=== PATIENT | male | born 1980 | race Caucasian/White ===

== ENCOUNTER → 2018-05-03 | Outpatient (CLI) | payer BC ==
--- NOTE | 2018-05-03 09:22 | Diagnostic Imaging Report ---
PROCEDURE: US Venous Lower Ext Driss. TECHNIQUE: Multiple real-time grayscale images were obtained over the lower extremities in various projections, bilaterally. Additional duplex Doppler and color Doppler images were also obtained. INDICATION: Lower limb ischemia. There is no evidence of a right or left lower extremity DVT. Both lower extremity deep venous systems demonstrate normal compressibility with normal response to augmentation and Valsalva. No fluid collection or mass is seen. IMPRESSION: No evidence of right or left lower extremity DVT. Dictated by: Dictated on workstation # [id number] ADDENDUM: UPDATED ORDERING PROVIDER YADIEL VALENCIA APRN
== END ==
LOC: RAD 07:52
PROVIDERS: ATTEND Nurse Practitioner Family
DX: M62.269 Nontraumatic ischemic infarction of muscle, unspecified lower leg (principal)
CPT/HCPCS: 93970

== ENCOUNTER 2020-03-01 14:57 | Observation (INO) | payer BC ==
[~2020-03-01] VITALS: Ht 190.5 cm; Wt 130.0 kg
[2020-03-01] MEDS ORDERED: LISI10TA2 PO (15:27)
[2020-03-01 15:35] LABS: BASOPHILS % (AUTO) 0 % (0-10); EOSINOPHILS # (AUTO) 0.2 10^3/uL (0.0-0.3); EOSINOPHILS % (AUTO) 3 % (0-10); HEMATOCRIT 41 % (40-54); HEMOGLOBIN 13.5 G/DL (13.3-17.7); LYMPHOCYTES # (AUTO) 1.2 X 10^3 (1.0-4.0); LYMPHOCYTES % (AUTO) 14 % (12-44); MEAN CORPUSCULAR HEMOGLOBIN 24 PG (25-34); MEAN CORPUSCULAR HGB CONC 33 G/DL (32-36); MEAN CORPUSCULAR VOLUME 73 FL (80-99); MEAN PLATELET VOLUME 9.6 FL (7.4-10.4); MONOCYTES # (AUTO) 0.6 X 10^3 (0.0-1.0); MONOCYTES % (AUTO) 7 % (0-12); NEUTROPHILS # (AUTO) 6.7 X 10^3 (1.8-7.8); NEUTROPHILS % (AUTO) 77 % (42-75); PLATELET COUNT 240 10^3/uL (130-400); RED CELL DISTRIBUTION WIDTH 15.4 % (10.0-14.5); WHITE BLOOD COUNT 8.7 10^3/uL (4.3-11.0)
[2020-03-01 15:42] LABS: ALBUMIN 4.3 GM/DL (3.2-4.5); POTASSIUM 3.5 MMOL/L (3.6-5.0)
[2020-03-01 15:43] LABS: CALCIUM 9.7 MG/DL (8.5-10.1)
[2020-03-01 15:44] LABS: TOTAL PROTEIN 7.8 GM/DL (6.4-8.2)
[2020-03-01] MEDS ORDERED: LABETALOL HCL 20 MG/4 ML VIAL IV ONE (15:45)
[2020-03-01 15:46] LABS: BILIRUBIN,TOTAL 0.4 MG/DL (0.1-1.0)
[2020-03-01 15:48] LABS: CREATININE SERUM 1.47 MG/DL (0.60-1.30)
[2020-03-01 16:10] LABS: TSH (THYROID ANALYZER) 1.67 UIU/ML (0.35-4.94)
[2020-03-01 16:30] LABS: BILIRUBIN,URINE NEGATIVE (NEGATIVE); CLARITY,URINE CLEAR; COLOR,URINE YELLOW; GLUCOSE, URINE (UA) NEGATIVE (NEGATIVE); KETONES,URINE NEGATIVE (NEGATIVE); LEUKOCYTE ESTERASE ,URINE NEGATIVE (NEGATIVE); NITRITE,URINE NEGATIVE (NEGATIVE); PROTEIN,URINE NEGATIVE (NEGATIVE)
[2020-03-01] MEDS ORDERED: hydrALAZINE (APRESOLINE) 25 MG TAB PO ONE (16:30)
[2020-03-01 16:37] LABS: BACTERIA,URINE NEGATIVE /HPF; WBC,URINE RARE /HPF
--- NOTE | 2020-03-01 16:38 | ED Cardiac General ---
History of Present Illness General Chief Complaint: Cardiac/General Problems Stated Complaint: HIGH BP Nursing Triage Note: PT CO OF HYPERTENSION, STATES STARTED TAKING LISINOPRIL LAST WEEK, WAS SEEN TODAY AT [facility] AND SENT TO ED. Source: patient Exam Limitations: no limitations History of Present Illness Date Seen by Provider: Mar 01, 2020 Time Seen by Provider: 15:20 Initial Comments This 39-year-old gentleman presents to the emergency room as referred by the [facility] clinic for hypertension. He reports a remote history of hypertension a few years ago for which she was briefly treated. He states he "did not stick with it" and was not treated until he was seen again recently. He presented to the clinic about a week ago for some swelling in his foot. Hypertension was noted at that time. He was started on lisinopril/HCTZ 10/12.5 as well as amlodipine 5 mg. He took 2 of the lisinopril/HCTZ and at one of the amlodipine this morning. He then presented to [facility] and was found to have systolic blood pressures in the 170-180 range. Upon presentation here his systolic blood pressures 218. He denies chest pain, headache, vision changes, or other acute symptoms. He believes hypertension runs in his family. He denies any use of illicit substances or alcohol. He does use some stimulants in the form of coffee. He did take a B complex drink flavorings earlier today. He is uncertain if there is caffeine or any other stimulant in it. Allergies and Home Medications Allergies Coded Allergies: No Known Drug Allergies (Unverified , 03/01/20) Home Medications Lisinopril 10 Mg Tablet, Unknown Dose PO DAILY, (Reported) Patient Home Medication List Home Medication List Reviewed: Yes Review of Systems Review of Systems Constitutional: no symptoms reported EENTM: No Symptoms Reported Cardiovascular: See HPI Gastrointestinal: No Symptoms Reported Genitourinary: No Symptoms Reported Musculoskeletal: no symptoms reported Skin: no symptoms reported Psychiatric/Neurological: No Symptoms Reported Endocrine: No Symptoms Reported Hematologic/Lymphatic: No Symptoms Reported Past Jsvqxac-Rkylqp-Iwqein Hx Past Med/Social Hx: Reviewed Nursing Past Med/Soc Hx Patient Social History Alcohol Use: Denies Use Recreational Drug Use: No Smoking Status: Never a Smoker Recent Foreign Travel: No Contact w/Someone Who Travel: No Recent Infectious Disease Expo: No Recent Hopitalizations: No Physical Abuse: No Sexual Abuse: No Past Medical History Surgeries: Yes (L ARM SURG) Respiratory: No Cardiac: Yes Hypertension Neurological: No Genitourinary: No Gastrointestinal: No Musculoskeletal: No Endocrine: No HEENT: No Cancer: No Psychosocial: No Physical Exam Vital Signs Vital Signs - First Documented 03/01/20 15:00 Temp 36.3 Pulse 92 Resp 18 B/P (MAP) 218/135 (162) Pulse Ox 99 Capillary Refill : Less Than 3 Seconds Height, Weight, BMI Height: '" Weight: lbs. oz. 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 Norm as Tested Skin: Normal Color, Warm/Dry Progress/Results/Core Measures Results/Orders Lab Results Laboratory Tests Test 03/01/20 15:10 03/01/20 16:23 Range/Units White Blood Count 8.7 4.3-11.0 10^3/uL Red Blood Count 5.58 4.35-5.85 10^6/uL Hemoglobin 13.5 13.3-17.7 G/DL Hematocrit 41 40-54 % Mean Corpuscular Volume 73 L 80-99 FL Mean Corpuscular Hemoglobin 24 L 25-34 PG Mean Corpuscular Hemoglobin Concent 33 32-36 G/DL Red Cell Distribution Width 15.4 H 10.0-14.5 % Platelet Count 240 130-400 10^3/uL Mean Platelet Volume 9.6 7.4-10.4 FL Neutrophils (%) (Auto) 77 H 42-75 % Lymphocytes (%) (Auto) 14 12-44 % Monocytes (%) (Auto) 7 0-12 % Eosinophils (%) (Auto) 3 0-10 % Basophils (%) (Auto) 0 0-10 % Neutrophils # (Auto) 6.7 1.8-7.8 X 10^3 Lymphocytes # (Auto) 1.2 1.0-4.0 X 10^3 Monocytes # (Auto) 0.6 0.0-1.0 X 10^3 Eosinophils # (Auto) 0.2 0.0-0.3 10^3/uL Basophils # (Auto) 0.0 0.0-0.1 10^3/uL Sodium Level 143 135-145 MMOL/L Potassium Level 3.5 L 3.6-5.0 MMOL/L Chloride Level 105 98-107 MMOL/L Carbon Dioxide Level 26 21-32 MMOL/L Anion Gap 12 5-14 MMOL/L Blood Urea Nitrogen 23 H 7-18 MG/DL Creatinine 1.47 H 0.60-1.30 MG/DL Estimat Glomerular Filtration Rate 53 BUN/Creatinine Ratio 16 Glucose Level 97 70-105 MG/DL Calcium Level 9.7 8.5-10.1 MG/DL Corrected Calcium 9.5 8.5-10.1 MG/DL Total Bilirubin 0.4 0.1-1.0 MG/DL Aspartate Amino Transf (AST/SGOT) 23 5-34 U/L Alanine Aminotransferase (ALT/SGPT) 31 0-55 U/L Alkaline Phosphatase 56 40-136 U/L B-Type Natriuretic Peptide 157.7 H <100.0 PG/ML Total Protein 7.8 6.4-8.2 GM/DL Albumin 4.3 3.2-4.5 GM/DL TSH [place] Testing 1.67 0.35-4.94 UIU/ML Urine Color YELLOW Urine Clarity CLEAR Urine pH 6.0 5-9 Urine Specific [place] 1.020 1.016-1.022 Urine Protein NEGATIVE NEGATIVE Urine Glucose (UA) NEGATIVE NEGATIVE Urine Ketones NEGATIVE NEGATIVE Urine Nitrite NEGATIVE NEGATIVE Urine Bilirubin NEGATIVE NEGATIVE Urine Urobilinogen 0.2 < = 1.0 MG/DL Urine Leukocyte Esterase NEGATIVE NEGATIVE Urine RBC (Auto) NEGATIVE NEGATIVE Urine RBC NONE /HPF Urine WBC RARE /HPF Urine Crystals NONE /LPF Urine Bacteria NEGATIVE /HPF Urine Casts PRESENT /LPF Urine Coarse Granular Casts RARE H /LPF Urine Mucus NEGATIVE /LPF Urine Culture Indicated NO Urine Opiates Screen NEGATIVE NEGATIVE Urine Oxycodone Screen NEGATIVE NEGATIVE Urine Methadone Screen NEGATIVE NEGATIVE Urine Propoxyphene Screen NEGATIVE NEGATIVE Urine Barbiturates Screen NEGATIVE NEGATIVE Ur Tricyclic Antidepressants Screen NEGATIVE NEGATIVE Urine Phencyclidine Screen NEGATIVE NEGATIVE Urine Amphetamines Screen NEGATIVE NEGATIVE Urine Methamphetamines Screen NEGATIVE NEGATIVE Urine Benzodiazepines Screen NEGATIVE NEGATIVE Urine Cocaine Screen NEGATIVE NEGATIVE Urine Cannabinoids Screen NEGATIVE NEGATIVE My Orders Orders - [facility],SILVER T MD BNP (03/01/20 15:28) Cbc With Automated Diff (03/01/20:28) Comprehensive Metabolic Panel (03/01/20:) Drug Screen Stat (Urine) (03/01/20 15:28) Thyroid Analyzer (03/01/20 15:28) Ua Culture If Indicated (03/01/20 15:28) Ed Iv/Invasive Line Start (03/01/20 15:28) Ekg Tracing (03/01/20 15:28) Monitor-Rhythm Ecg Trace Only (03/01/20 15:28) Labetalol Injection (Normodyne Injection (03/01/20 15:45) Hydralazine Tablet (Apresoline Tablet) (03/01/20 16:30) Medications Given in ED Current Medications Medications Dose Ordered Sig/Gia Route Start Time Stop Time Status Last Admin Dose Admin Hydralazine HCl 50 mg ONCE ONCE PO 03/01/20 16:30 03/01/20 16:31 DC 03/01/20 16:44 50 MG Labetalol HCl 20 mg ONCE ONCE IV 03/01/20 15:45 03/01/20 15:46 DC 03/01/20 15:49 20 MG Vital Signs/I&O 03/01/20 15:00 Temp 36.3 Pulse 92 Resp 18 B/P (MAP) 218/135 (162) Pulse Ox 99 Blood Pressure Mean: 162 Progress Progress Note : Progress Note Patient received labetalol 20 mg IV which resulted in brief improvement of his blood pressure. However, blood pressure began to escalate again. Case was discussed with Dr. Morales. He and I both believe the severity of hypertension warrants admission and observation. Patient is being given hydralazine 50 mg now and every 6 hours. Case was also discussed with Dr. Butler who agrees with admission and accepts his case. Initial ECG Impression Date: Mar 01, 2020 Initial ECG Impression Time: 15:10 Initial ECG Rate: 91 Initial ECG Rhythm: Normal Sinus Initial ECG Intervals Right bundle branch block Comment Sinus rhythm with no ST elevation or depression. Right bundle branch block. No axis deviation. Departure Communication (Admissions) Time/Spoke to Admitting Phy: 16:30 Dr. Butler Time/Spoke to Consulting Phy: 16:25 Dr. Morales Impression Primary Impression: Severe hypertension Disposition: ADMITTED INPATIENT Condition: Stable Admissions Decision to Admit Reason: Admit from ER (General) Decision to Admit/Date: Mar 01, 2020 Time/Decision to Admit Time: 16:20 Departure-Patient Inst. Referrals: [facility] (PCP/Family) Primary Care Physician SILVER THAPA MD Mar 01, 2020 16:38
[2020-03-01 16:44] LABS: AMPHETAMINE SCREEN, URINE NEGATIVE (NEGATIVE); BARBITURATE SCREEN URINE NEGATIVE (NEGATIVE); BENZODIAZEPINES SCREEN URINE NEGATIVE (NEGATIVE); CANNABINOID SCREEN, URINE NEGATIVE (NEGATIVE); COCAINE SCREEN URINE NEGATIVE (NEGATIVE); METHADONE STAT NEGATIVE (NEGATIVE); METHAMPHETAMINE SCREEN URINE S NEGATIVE (NEGATIVE); OPIATE SCREEN URINE NEGATIVE (NEGATIVE); OXYCODONE STAT NEGATIVE (NEGATIVE); PROPOXYPHENE STAT NEGATIVE (NEGATIVE); TRICYCLIC ANTIDEPRESSANTS SCRE NEGATIVE (NEGATIVE)
[2020-03-01 17:24] VITALS: BP 235/135
--- OUTSIDE RECORDS SUMMARY | 2020-03-01 17:26 | XMS REPORT | Continuity of Care Document ---
Author Author [employer] Organization [employer] Address Unknown Phone Unavailable Allergies Active Description Code Type Severity Reaction Onset Reported/Identified Relationship to Patient Clinical Status Yes No Known Drug Allergies [id number] Drug Allergy Unknown N/A 03/01/2020 Medications There is no data. Problems Date Dx Coded Attending Type Code Diagnosis Diagnosed By 05/07/2018 BORN, YADIEL M POSTAL SUPERVISOR Ot M62.269 NONTRAUMATIC ISCHEMIC INFARCTION OF [facility] [place] 05/08/2018 BORN, YADIEL M POSTAL SUPERVISOR Ot M62.269 NONTRAUMATIC ISCHEMIC INFARCTION OF [facility] [place] 05/08/2018 BORN, YADIEL M POSTAL SUPERVISOR Ot M62.269 NONTRAUMATIC ISCHEMIC INFARCTION OF [facility] [place] 05/17/2018 BORN, YADIEL Pepper POSTAL SUPERVISOR Ot M62.261 NONTRAUMATIC ISCHEMIC INFARCTION OF [facility] [place] 05/17/2018 BORN, YADIEL Pabon POSTAL SUPERVISOR Ot M62.262 NONTRAUMATIC ISCHEMIC INFARCTION OF [facility] [place] Procedures There is no data. Results Test Result Range Complete blood count (CBC) with automate d white blood cell (WBC) differential - 03/01/20 15:10 Blood leukocytes automated count (number/volume) 8.7 10*3/uL 4.3-11.0 Blood erythrocytes automated count (number/volume) 5.58 10*6/uL 4.35-5.85 Venous blood hemoglobin measurement (mass/volume) 13.5 g/dL 13.3-17.7 Blood hematocrit (volume fraction) 41 % 40-54 Automated erythrocyte mean corpuscular volume 73 [ foz_us] 80-99 Automated erythrocyte mean corpuscular h emoglobin (mass per erythrocyte) 24 pg 25-34 Automated erythrocyte mean corpuscular h emoglobin concentration measurement (mass/volume) 33 g/dL 32-36 Automated erythrocyte distribution width ratio 15. 4 % 10.0- 14.5 Automated blood platelet count (count/volume) 240 10*3/uL 130-400 Automated blood platelet mean volume measurement 9.6 [foz_us] 7.4-10.4 Automated blood neutrophils/100 leukocytes 77 % 42-75 Automated blood lymphocytes/100 leukocytes 14 % 12-44 Blood monocytes/100 leukocytes 7 % 0-12 Automated blood eosinophils/100 leukocytes 3 % 0-10 Automated blood basophils/100 leukocytes 0 % 0-10 Blood neutrophils automated count (number/volume) 6.7 10*3 1.8-7.8 Blood lymphocytes automated count (number/volume) 1.2 10*3 1.0-4.0 Blood monocytes automated count (number/volume) 0. 6 10*3 0.0-1.0 Automated eosinophil count 0.2 10*3/uL 0 .0-0.3 Automated blood basophil count (count/volume) 0.0 10*3/uL 0.0-0.1 Comprehensive metabolic panel - 03/01/20 15:10 Serum or plasma sodium measurement (moles/volume) 143 mmol/L 135-145 Serum or plasma potassium measurement (moles/volume) 3.5 mmol/L 3.6-5.0 Serum or plasma chloride measurement (moles/volume) 105 mmol/L 98-107 Carbon dioxide 26 mmol/L 21-32 Serum or plasma anion gap determination (moles/volume) 12 mmol/L 5-14 Serum or plasma urea nitrogen measurement (mass/volume ) 23 mg/dL 7-18 Serum or plasma creatinine measurement (mass/volume) 1.47 mg/dL 0.60-1.30 Serum or plasma urea nitrogen/creatinine mass ratio 16 NRG Serum or plasma creatinine measurement w ith calculation of estimated glomerular filtration rate 53 NRG Serum or plasma glucose measurement (mass/volume) 97 mg/dL 70-105 Serum or plasma calcium measurement (mass/volume) 9.7 mg/dL 8.5-10.1 Serum or plasma total bilirubin measurement (mass/volu me) 0.4 mg/dL 0.1-1.0 Serum or plasma alkaline phosphatase francis surement (enzymatic activity/volume) 56 U/L 40-136 Serum or plasma aspartate aminotransfera se measurement (enzymatic activity/volume) 23 U/L 5-34 Serum or plasma alanine aminotransferase measurement (enzymatic activity/volume) 31 U/L 0-55 Serum or plasma protein measurement (mass/volume) 7.8 g/dL 6.4-8.2 Serum or plasma albumin measurement (mass/volume) 4.3 g/dL 3.2-4.5 CALCIUM CORRECTED 9.5 mg/dL 8.5-10.1 Serum or plasma thyrotropin measurement by detection limit <=0.05 miu/l (units/volume) - 03/01/20 15:10 Serum or plasma thyrotropin measurement by detection limit <=0.05 miu/l (units/volume) 1.67 u[iU]/mL 0.35-4.94 Serum or plasma lithium measurement (mol es/volume) - 03/01/20 15:10 BNP PT 157.7 pg/mL <100.0 Complete urinalysis with reflex to cultu re - 03/01/20 16:23 Urine color determination YELLOW NRG Urine clarity determination CLEAR NR G Urine pH measurement by test strip 6.0 5-9 Specific gravity of urine by test strip 1.020 1.016-1.022 Urine protein assay by test strip, semi-quantitative NEGATIVE NEGATIVE Urine glucose detection by automated test strip NE GATIVE NEGATIVE Erythrocytes detection in urine sediment by light micr oscopy NEGATIVE NEGATIVE Urine ketones detection by automated test strip NE GATIVE NEGATIVE Urine nitrite detection by test strip NEGATIVE NEGATIVE Urine total bilirubin detection by test strip NEGA TIVE NEGATIVE Urine urobilinogen measurement by automated test strip (mass/volume) 0.2 mg/dL < = 1.0 Urine leukocyte esterase detection by dipstick NEG ATIVE NEGATIVE Automated urine sediment erythrocyte cou nt by microscopy (number/high power field) NONE NRG Automated urine sediment leukocyte count by microscopy (number/high power field) RARE NRG Bacteria detection in urine sediment by light microsco py NEGATIVE NRG Crystals detection in urine sediment by light microsco py NONE NRG Casts detection in urine sediment by light microscopy PRESENT NRG Mucus detection in urine sediment by light microscopy NEGATIVE NRG Complete urinalysis with reflex to culture NO NRG Coarse granular casts detection in urine sediment by l ight microscopy RARE NRG Urine drug screening test - 03/01/20 16: 23 Urine phencyclidine detection by screening method NEGATIVE NEGATIVE Urine benzodiazepines detection by screening method NEGATIVE NEGATIVE Urine cocaine detection NEGATIVE NEGATI VE Urine amphetamines detection by screening method N EGATIVE NEGATIVE Urine methamphetamine detection by screening method NEGATIVE NEGATIVE Urine cannabinoids detection by screening method N EGATIVE NEGATIVE Urine opiates detection by screening method NEGATI VE NEGATIVE Urine barbiturates detection NEGATIVE N EGATIVE Screening urine tricyclic antidepressants detection NEGATIVE NEGATIVE Urine methadone detection by screening method NEGA TIVE NEGATIVE Urine oxycodone detection NEGATIVE NEGA TIVE Urine propoxyphene detection NEGATIVE N EGATIVE Encounters ACCT No. Visit Date/Time Discharge Status Pt. Type Provider Facility Loc./Unit Complaint [id number] 02/25/2020 11:00:00 02/25/2020 23:59: 59 CLS Outpatient RAFAELA ISIDRO [facility] [id number] 05/03/2018 07:52:00 018 23:59:59 CLS Outpatient ANNIE YADIELImra Pabon APRN [facility] RAD LOWER LIMB ISCHEMIA [id number] 03/01/2020 16:35:[address] Inpatient ANDI PHILIPPE, JACKIE Cha [facility] 4TH SEVERE HYPERTENSION
[2020-03-01] MEDS ORDERED: CATHETER FLUSH 10 ML SYR IV PRN (17:30)
[2020-03-01] MEDS: lisINopril 10 MG (PRINIVIL) TABLET PO SCH (17:37)
[2020-03-01] MEDS: amLODIPine 5 MG (NORVASC) TAB PO SCH (17:37)
[2020-03-01] MEDS: HYDROCHLOROTHIAZIDE 12.5 MG (HCTZ) CAP PO SCH (17:37)
[2020-03-01 18:10] VITALS: BP 214/114
[2020-03-01] MEDS: ENOXAPARIN 40 MG/0.4 ML (LOVENOX) SYR SQ SCH (18:47)
--- NOTE | 2020-03-01 18:52 | NUR ---
DR FELIPE NOTIFIED OF ELEVATED BP REQUESTED 186/102. 25 MG IV HYDRALAZINE X 1 ORDERED.
--- OUTSIDE RECORDS SUMMARY | 2020-03-01 18:59 | XMS REPORT | Continuity of Care Document ---
Author Author [employer] Address Unknown Phone Unavailable Allergies Active Description Code Type Severity Reaction Onset Reported/Identified Relationship to Patient Clinical Status Yes No Known Drug Allergies [id number] Drug Allergy Unknown N/A 03/01/2020 Medications There is no data. Problems Date Dx Coded Attending Type Code Diagnosis Diagnosed By 05/07/2018 BORN, YADIEL M CHIP APPLYING MACHINE TENDER Ot M62.269 NONTRAUMATIC ISCHEMIC INFARCTION OF [facility] [place] 05/08/2018 BORN, YADIEL M CHIP APPLYING MACHINE TENDER Ot M62.269 NONTRAUMATIC ISCHEMIC INFARCTION OF [facility] [place] 05/08/2018 BORN, YADIEL M CHIP APPLYING MACHINE TENDER Ot M62.269 NONTRAUMATIC ISCHEMIC INFARCTION OF [facility] [place] 05/17/2018 BORN, YADIEL Pepper CHIP APPLYING MACHINE TENDER Ot M62.261 NONTRAUMATIC ISCHEMIC INFARCTION OF [facility] [place] 05/17/2018 BORN, YADIEL Pabon CHIP APPLYING MACHINE TENDER Ot M62.262 NONTRAUMATIC ISCHEMIC INFARCTION OF [facility] [place] Procedures There is no data. Results Test [...] Status Pt. Type Provider Facility Loc./Unit Complaint [id number] 03/01/2020 14:00:00 ACT Outpatient JOSE DAVID CHRISTIE [facility] [id number] 05/03/2018 07:52:00 018 23:59:59 CLS Outpatient YADIEL VALENCIA APRN [facility] RAD LOWER LIMB ISCHEMIA [id number] 03/01/2020 16:35:[address] Inpatient ANDI PHILIPPE, JACKIE Cha [facility] 4TH SEVERE HYPERTENSION
[2020-03-01] MEDS ORDERED: hydrALAZINE (APESOLINE) 20 MG/ML VIAL IV NR (19:00)
[2020-03-01 19:02] VITALS: BP 167/93
[2020-03-01 20:15] VITALS: BP 143/84
[2020-03-01] MEDS: CATHETER FLUSH 10 ML SYR IV SCH (20:18)
[2020-03-01 21:07] VITALS: BP 153/94
[2020-03-01] MEDS: hydrALAZINE (APRESOLINE) 25 MG TAB PO SCH (23:41)
[2020-03-01 23:55] VITALS: BP 182/105
[2020-03-02] VITALS (7 sets, daily range): BP systolic 153–184; BP diastolic 72–98
[2020-03-02 04:50] LABS: CHLORIDE 104 MMOL/L (98-107); POTASSIUM 3.5 MMOL/L (3.6-5.0); SODIUM 140 MMOL/L (135-145)
[2020-03-02 04:51] LABS: CALCIUM 9.3 MG/DL (8.5-10.1); GLUCOSE 110 MG/DL (70-105)
[2020-03-02 04:53] LABS: CARBON DIOXIDE 25 MMOL/L (21-32)
[2020-03-02 04:55] LABS: CREATININE SERUM 1.28 MG/DL (0.60-1.30); GFR ESTIMATED > 60
[2020-03-02 04:56] LABS: BUN/CREATININE RATIO 16
[2020-03-02] MEDS: hydrALAZINE (APRESOLINE) 25 MG TAB PO SCH ×3 (05:17→18:26)
[2020-03-02] MEDS: CATHETER FLUSH 10 ML SYR IV SCH ×3 (05:17→20:21)
[2020-03-02] MEDS: HYDROCHLOROTHIAZIDE 12.5 MG (HCTZ) CAP PO SCH (08:07)
[2020-03-02] MEDS: lisINopril 10 MG (PRINIVIL) TABLET PO SCH (08:07)
[2020-03-02] MEDS: amLODIPine 5 MG (NORVASC) TAB PO SCH (08:07)
[2020-03-02] MEDS ORDERED: KCL 20 MEQ TAB (K-DUR) PO NR (09:00)
--- NOTE | 2020-03-02 09:14 | History & Physical ---
ELEONORA MEYER MED STUDENT 03/02/20 0914: HPI History of Present Illness: This patient is a 39 year old male that presented to the ED yesterday for severe HTN. He was referred to the ED by [facility] after having blood pressures in the 170- 180 range, with the highest being a systolic pressure of 218 in the ED. This morning he denies any pain and says he is feeling fine. He is alert and oriented x3 and denies any headaches, vision problems, trouble breathing, or heart palp ations. He states that at home, he had not been taking any medications to control his blood pressure for a while. However, he states that he has been taking his medications that he received at the walk in clinic for the last 6 days. He also states that he does not know what his blood pressure usually runs at. He states he does not have any questions or concerns about his health at this time. Source: patient Exam Limitations: no limitations Date seen by provider: Mar 02, 2020 Time Seen by Provider: 08:50 Attending Physician Jackie Butler MD [facility] Consult Date of Admission Mar 01, 2020 at 16:35 Home Medications Home Medications Reviewed patient Home Medication Reconciliation performed by pharmacy medication reconciliations certified composites technician and/or nursing. Patients Allergies have been reviewed. Allergies Coded Allergies: No Known Drug Allergies (Unverified , 03/01/20) NWO-Dthojg-Rqcbzn Hx Patient Social History Alcohol Use: Denies Use Recreational Drug Use: No Smoking Status: Never a Smoker Recent Foreign Travel: No Contact w/other who traveled: No Recent Hopitalizations: No Recent Infectious Disease Expo: No Past Medical History Pt states a history of HTN Family Medical History Significant Family History: Hypertension Review of Systems ([facility]) Constitutional: no symptoms reported EENTM: no symptoms reported Respiratory: no symptoms reported Cardiovascular: no symptoms reported Gastrointestinal: no symptoms reported All Other Systems Reviewed Negative Unless Noted: Yes Physical Exam-([facility]) Physical Exam Vital Signs VS - Last 72 Hours, by Label 03/01/20 03/01/20 03/01/20 03/01/20 15:00 16:57 17:24 17:49 Temp 36.3 36.2 Pulse 92 79 82 Resp 18 18 20 B/P (MAP) 218/135 (162) 197/125 235/135 Pulse Ox 99 99 96 96 O2 Delivery Room Air Room Air 8/17/20 8/17/20 8/17/20 8/17/20 18:10 18:36 19:00 19:02 Temp 36.2 36.6 Pulse 87 80 88 87 Resp 20 18 B/P (MAP) 214/114 (147) 167/93 (117) Pulse Ox 97 97 O2 Delivery Room Air Room Air 03/01/20 03/01/20 03/01/20 03/01/20 20:15 20:15 21:07 23:55 Temp 36.4 Pulse 85 80 Resp 16 B/P (MAP) 143/84 (103) 153/94 (113) 182/105 (130) Pulse Ox 96 O2 Delivery Room Air Room Air Room Air 03/02/20 03/02/20 03/02/20 03/02/20 00:44 01:00 04:10 06:46 Temp 36.4 Pulse 85 82 84 85 Resp 16 B/P (MAP) 159/84 (109) 153/72 (99) Pulse Ox 95 O2 Delivery Room Air 03/02/20 08:00 Temp 36.5 Pulse 87 Resp 20 B/P (MAP) 177/84 (115) Pulse Ox 97 O2 Delivery Room Air Capillary Refill : Less Than 3 SecondsLess Than 3 Seconds General Appearance: WD/WN, no apparent distress Respiratory: chest non-tender, lungs clear, normal breath sounds, no respiratory distress, no accessory muscle use Cardiovascular: regular rate, rhythm, no edema, no gallop, no JVD, no murmur Peripheral Pulses: 2+ Dorsalis Pedis (R), 2+ Left Dors-Pedis (L), 2+ Radial Pulses (R) Extremities: normal inspection, no pedal edema Neurologic/Psychiatric: alert, normal mood/affect, oriented x 3 Skin: normal color, warm/dry Assessment/Plan Assessment/Plan Admission Dx Severe Hypertension Admission Status: Observation Assessment & Plan Continue to monitor the Patients pressure and administer medications until a target BP is achieved. Increase Dose of patients lisinopril. Educate patient on importance of controlling blood pressure and discharge him with medications to provide moth exterminator control and prevent end-organ damage. Have the patient see a command center analyst to assess for renal injury. Work up patient for pheochromocytoma, hyperaldosteronism, and renal artery stenosis. (1) Severe hypertension Onset Date: ~ 03/01/2020 Status: Acute (2) DVT prophylaxis Status: Acute (3) Acute kidney injury Status: Resolved Clinical Quality Measures DVT/VTE Risk/Contraindication: Risk Factor Score Per Nursin RFS Level Per Nursing on Admit: 2=Moderate Supervisory-Addendum Brief Verification & Attestation Participated in pt care: history Personally performed: exam Care discussed with: Medical Student, other (Attending) Procedures: n/a n/a JACKIE BUTLER MD 03/02/20 1156: Home Medications Allergies Coded Allergies: No Known Drug Allergies (Unverified , 03/01/20) Physical Exam-([facility]) Physical Exam General Appearance: WD/WN, no apparent distress Respiratory: lungs clear, normal breath sounds Cardiovascular: regular rate, rhythm, no murmur Gastrointestinal: normal bowel sounds, non tender, soft Extremities: normal inspection, no pedal edema Neurologic/Psychiatric: alert, normal mood/affect Skin: normal color, warm/dry Assessment/Plan Assessment/Plan Admission Status: Observation (1) Severe hypertension Onset Date: ~ 03/01/2020 Status: Acute Assessment & Plan: Given labetalol 20 mg IV and hydralazine 25 mg IV and hydralazine 25 mg PO per ER with some improvement. Resume home lisinopril at in creased dose- increase to 40 mg, resume home amlodipine at increased dose of 10 mg, continue home hydrochlorothiazide 12.5 and hydralazine 50 mg PO q6 also started. Cardiology consulted, appreciate recommendations. Renal US today, if BP adequately controlled will complete secondary HTN work-up outpatient. (2) Acute kidney injury Status: Resolved (3) DVT prophylaxis Status: Acute Assessment & Plan: Enoxaparin Supervisory-Addendum Brief Verification & Attestation Participated in pt care: history, MDM, physical Personally performed: exam, history, MDM Care discussed with: Medical Student Procedures: n/a I personally have seen and evaluated the patient and performed the physical exam. See my notes and problem list. ELEONORA MEYER MED STUDENT Mar 02, 2020 09:14 JACKIE BUTLER MD Mar 02, 2020 11:56
--- NOTE | 2020-03-02 09:20 | Consultation-Cardiology ---
HPI-Cardiology Cardiology Consultation: Date of Consultation 03/01/20 Date of Admission Attending Physician Saray Butler MD Admitting Physician [place] Consulting Physician Pepper MORALES MD HPI: Time Seen by a Provider: 17:00 Chief Complaint: Severe hypertension This patient is a 39 year old male that presented to the ED yesterday for severe HTN. He was referred to the ED by [facility] after having blood pressures in the 170- 180 range, with the highest being a systolic pressure of 218 in the ED. This morning he denies any pain and says he is feeling fine. He is alert and oriented x3 and denies any headaches, vision problems, trouble breathing, or heart palpations. He states that at home, he had not been taking any medications to control his blood pressure for a while. However, he states that he has been taking his medications that he received at the walk in clinic for the last 6 days. He also states that he does not know what his blood pressure usually runs at. He states he does not have any questions or concerns about his health at this time. BRI-Ueojcw-Qzefso Hx Patient Social History Alcohol Use: Denies Use Recreational Drug Use: No Smoking Status: Never a Smoker Recent Foreign Travel: No Recent Infectious Disease Expo: No Hospitalization with Isolation: Denies Past Medical History PMH As described under Assessment. Allergies and Home Medications Allergies Coded Allergies: No Known Drug Allergies (Unverified , 03/01/20) Home Medications Acetaminophen/Diphenhydramine 1 Each Tablet, 1-2 EACH PO HS PRN for SLEEP, (Reported) Amlodipine Besylate 5 Mg Tablet, 5 MG PO DAILY, (Reported) Lisinopril/Hydrochlorothiazide 1 Each Tablet, 1 EACH PO DAILY, (Reported) Multivits,Ca,Min/Iron/FA/Lycop 1 Each Tablet, 1 EACH PO DAILY, (Reported) Physical Exam-Cardiology Physical Exam Vital Signs/I&O 03/02/20 03/02/20 03/02/20 03/02/20 04:10 06:46 08:00 08:00 Temp 36.4 36.5 Pulse 84 85 87 Resp 16 20 B/P (MAP) 153/72 (99) 177/84 (115) Pulse Ox 95 97 O2 Delivery Room Air Room Air Room Air 8/18/20 8/18/20 8/18/20 12:00 12:33 13:11 Temp 36.5 36.6 Pulse 87 84 Resp 18 B/P (MAP) 180/94 (122) Pulse Ox 98 O2 Delivery Room Air 03/02/20 00:00 Intake Total 200 ml Balance 200 ml Capillary Refill : Less Than 3 SecondsLess Than 3 Seconds Data Review Labs Laboratory Tests 03/01/20 15:10: White Blood Count 8.7, Red Blood Count 5.58, Hemoglobin 13.5, Hematocrit 41, Mean Corpuscular Volume 73L, Mean Corpuscular Hemoglobin 24L, Mean Corpuscular Hemoglobin Concent 33, Red Cell Distribution Width 15.4H, Platelet Count 240, Mean Platelet Volume 9.6, Neutrophils (%) (Auto) 77H, Lymphocytes (%) (Auto) 14, Monocytes (%) (Auto) 7, Eosinophils (%) (Auto) 3, Basophils (%) (Auto) 0, Neutrophils # (Auto) 6.7, Lymphocytes # (Auto) 1.2, Monocytes # (Auto) 0.6, Eosinophils # (Auto) 0.2, Basophils # (Auto) 0.0, Sodium Level 143, Potassium Level 3.5L, Chloride Level 105, Carbon Dioxide Level 26, Anion Gap 12, Blood Urea Nitrogen 23H, Creatinine 1.47H, Estimat Glomerular Filtration Rate 53, BUN/Creatinine Ratio 16, Glucose Level 97, Calcium Level 9.7, Corrected Calcium 9.5, Total Bilirubin 0.4, Aspartate Amino Transf (AST/SGOT) 23, Alanine Aminotransferase (ALT/SGPT) 31, Alkaline Phosphatase 56, B-Type Natriuretic Peptide 157.7H, Total Protein 7.8, Albumin 4.3, TSH [place] Testing 1.67 03/01/20 16:23: Urine Color YELLOW, Urine Clarity CLEAR, Urine pH 6.0, Urine Specific [place] 1.020, Urine Protein NEGATIVE, Urine Glucose (UA) NEGATIVE, Urine Ketones NEGATIVE, Urine Nitrite NEGATIVE, Urine Bilirubin NEGATIVE, Urine Urobilinogen 0.2, Urine Leukocyte Esterase NEGATIVE, Urine RBC (Auto) NEGATIVE, Urine RBC NONE, Urine WBC RARE, Urine Crystals NONE, Urine Bacteria NEGATIVE, Urine Casts PRESENT, Urine Coarse Granular Casts RAREH, Urine Mucus NEGATIVE, Urine Culture Indicated NO, Urine Opiates Screen NEGATIVE, Urine Oxycodone Screen NEGATIVE, Urine Methadone Screen NEGATIVE, Urine Propoxyphene Screen NEGATIVE, Urine Barbiturates Screen NEGATIVE, Ur Tricyclic Antidepressants Screen NEGATIVE, Urine Phencyclidine Screen NEGATIVE, Urine Amphetamines Screen NEGATIVE, Urine Methamphetamines Screen NEGATIVE, Urine Benzodiazepines Screen NEGATIVE, Urine Cocaine Screen NEGATIVE, Urine Cannabinoids Screen NEGATIVE 03/02/20 04:30: Sodium Level 140, Potassium Level 3.5L, Chloride Level 104, Carbon Dioxide Level 25, Anion Gap 11, Blood Urea Nitrogen 21H, Creatinine 1.28, Estimat Glomerular Filtration Rate > 60, BUN/Creatinine Ratio 16, Glucose Level 110H, Calcium Level 9.3 A/P-Cardiology Plan Thank you for your consultation. Please call me if you have any questions. Alessio Morales MD, FACP, FACC, FSCAI, FHRS, CCDS Interventional Cardiology Cardiac Electrophysiology Vascular Medicine and Endovascular Interventions Clinical Quality Measures DVT/VTE Risk/Contraindication: Risk Factor Score Per Nursin RFS Level Per Nursing on Admit: 2=Moderate Pepper MORALES MD Mar 02, 2020 09:20
--- NOTE | 2020-03-02 09:26 | NUR ---
Pt is Yazidism. Senior Portfolio Analyst provided prayer and Communion.
[2020-03-02] MEDS ORDERED: AMLO5TAB9 PO (10:30)
[2020-03-02] MEDS ORDERED: LISI1TAB29 PO (10:30)
[2020-03-02] MEDS ORDERED: ACET-2715 PO (10:30)
[2020-03-02] MEDS ORDERED: MULT-1030 PO (10:30)
--- NOTE | 2020-03-02 10:31 | NUR ---
SPOKE WITH THE PT AND CALLED [facility] TO COMPLETE THE MED REC PT COULDNT REMEMBER THE NAMES OF HIS MEDICATIONS, I LET HIM KNOW WHAT I HAD LISTED FROM [facility] AND HE VERIFIED THAT HE WAS TAKING THEM. 02-24-2020 LISINOPRIL/HCTZ 10/12.5MG #DS 02-25-2020 AMLODIPINE 5MG #DS OTC MEDS: TYLENOL PM PRN MTV
--- NOTE | 2020-03-02 11:30 | NUR ---
DR FELIPE NOTIFIED OF BP 207/111. MED ADJUSTMENTS BEING MADE AT THIS TIME.
[2020-03-02] MEDS ORDERED: lisINopril 20 MG (PRINIVIL) TABLET PO NR (11:32)
[2020-03-02] MEDS ORDERED: amLODIPine 5 MG (NORVASC) TAB PO NR (11:45)
--- NOTE | 2020-03-02 12:45 | NUR ---
RENAL US/DOPPLER AT BEDSIDE, WILL RECHECK BP WHEN FINISHED.
--- NOTE | 2020-03-02 13:40 | NUR ---
DR FELIPE NOTIFIED OF BP 180/94. AWAITING NEW ORDERS
--- NOTE | 2020-03-02 14:28 | Diagnostic Imaging Report ---
INDICATION: Hypertension TECHNIQUE: Multiple real-time grayscale sonographic images, color and duplex Doppler images were obtained of the urinary system. FINDINGS: Aortic velocity: 116 cm/sec. RIGHT kidney: Size: 12 x 4.9 x 5.3 cm The right renal parenchyma and collecting system appear unremarkable. The right renal artery is visualized in its proximal, mid and distal aspect. Maximum renal artery velocity: 100cm/sec Maximum renal artery/aortic ratio: 0.86 LEFT kidney: Size: 11.0 x 5.3 x 6.1 cm The left renal parenchyma and collecting system appear unremarkable. The left renal artery is visualized in its proximal, mid and distal aspect. Maximum renal artery velocity: 79cm/sec Maximum renal artery/aortic ratio: 0.68 Bladder: Not imaged. IMPRESSION: 1. Unremarkable renal ultrasound with doppler. (RA/AO ratios > 3.0 may suggest potential hemodynamically significant stenosis.) Dictated by: Dictated on workstation # [id number]
[2020-03-02] MEDS: ENOXAPARIN 40 MG/0.4 ML (LOVENOX) SYR SQ SCH (18:26)
--- NOTE | 2020-03-02 19:56 | Cardiology Progress Note ---
Cardiology SO Progress Note Objective: I&O/Vital Signs 03/02/20 03/02/20 03/02/20 03/02/20 08:00 08:00 12:00 12:33 Temp 36.5 36.5 Pulse 87 87 Resp 20 B/P (MAP) 177/84 (115) Pulse Ox 97 O2 Delivery Room Air Room Air 03/02/20 03/02/20 03/02/20 13:11 15:00 18:08 Temp 36.6 Pulse 84 94 Resp 18 B/P (MAP) 180/94 (122) 155/91 (112) 182/94 (123) Pulse Ox 98 O2 Delivery Room Air 03/02/20 00:00 Intake Total 200 ml Balance 200 ml Results/Procedures: Labs Laboratory Tests 03/02/20 04:30: Sodium Level 140, Potassium Level 3.5L, Chloride Level 104, Carbon Dioxide Level 25, Anion Gap 11, Blood Urea Nitrogen 21H, Creatinine 1.28, Estimat Glomerular Filtration Rate > 60, BUN/Creatinine Ratio 16, Glucose Level 110H, Calcium Level 9.3 A/P: Thank you for your consultation. Please call me if you have any questions. Alessio Morales MD, FACP, FACC, FSCAI, FHRS, CCDS Interventional Cardiology Cardiac Electrophysiology Vascular Medicine and Endovascular Interventions Pepper MORALES MD Mar 02, 2020 19:56
--- NOTE | 2020-03-02 20:03 | NUR ---
DR FELIPE NOTIFIED ABOUT BLOOD PRESSURE 184/94 AND HR 89. NEW ORDER TO START CARVEDILOL 12.5MG BIB.
[2020-03-02] MEDS ORDERED: CARVEDILOL 12.5 MG (COREG) TABLET PO SCH (21:00)
[2020-03-03] MEDS ORDERED: lisINopril 40 MG (PRINIVIL) TABLET PO SCH (09:00)
[2020-03-03] MEDS ORDERED: lisINopril 10 MG (PRINIVIL) TABLET PO SCH ×2 (09:00)
[2020-03-03] MEDS ORDERED: amLODIPine 5 MG (NORVASC) TAB PO SCH (09:00)
--- NOTE | 2020-03-04 07:55 | Discharge Summary ---
Discharge Summary Hospital Course Problems/Diagnosis: (1) Severe hypertension Onset Date: ~ 03/01/2020 Status: Acute Assessment & Plan: Given labetalol 20 mg IV and hydralazine 25 mg IV and hydralazine 25 mg PO per ER with some improvement. Resume home lisinopril at increased dose- increase to 40 mg, resume home amlodipine at increased dose of 10 mg, continue home hydrochlorothiazide 12.5 and hydralazine 50 mg PO q6 also started. Cardiology consulted, appreciate recommendations. Renal US today, if BP adequately controlled will complete secondary HTN work-up outpatient. Renal US with dopplers without significant abnormality, required addition of carvedilol as well due to uncontrolled BP and BP was in the 150s at discharge on lisinopril 40 mg, amlodipine 10 mg, HCTZ 12.5 mg, hydralazine 50 mg q6 and carvedilol 12.5 BID. (2) Acute kidney injury Status: Resolved Resolution Date/Time: 03/02/20 @ 11:54 Hospital Course Date of Admission: Mar 01, 2020 at 16:35 Admission Diagnosis : [place] Physician/[place] [place] Date of Discharge: 03/04/20 Discharge Diagnosis: hypertensive emergency Acute kidney injury Hospital Course: See problem list Labs and Pending Lab Test: Home Meds Active Reported Centrum Men's Tablet (Multivits,Ca,Min/Iron/FA/Lycop) 1 Each Tablet 1 Each PO DAILY Tylenol Pm Ex-Strength Caplet (Acetaminophen/Diphenhydramine) 1 Each Tablet 1-2 Each PO HS PRN Amlodipine Besylate 5 Mg Tablet 5 Mg PO DAILY Lisinopril-Hctz 10-12.5 mg Tab (Lisinopril/Hydrochlorothiazide) 1 Each Tablet 1 Each PO DAILY Assessment/Pt DC Instructions Follow up with Cardiology and primary, need further work-up for secondary HTN. Discharge Diet: Low Sodium Diet Activity as Tolerated: No (avoid strenuous activity and heavy lifting until BP well controlled.) Discharge Physical Examination Allergies: Coded Allergies: No Known Drug Allergies (Unverified , 03/01/20) General Appearance: No Apparent Distress, WD/WN Respiratory: Lungs Clear, Normal Breath Sounds Cardiovascular: Regular Rate, Rhythm, No Murmur Skin: Normal Color, Warm/Dry Neurologic/Psychiatric: Alert, Normal Mood/Affect Clinical Quality Measures DVT/VTE Risk/Contraindication: Risk Factor Score Per Nursin RFS Level Per Nursing on Admit: 2=Moderate JACKIE ESCAMILLA MD Mar 04, 2020 07:55
[2020-03-04 09:04] LABS: BUN/CREATININE RATIO 16; CALCIUM 9.1 MG/DL (8.5-10.1); CARBON DIOXIDE 25 MMOL/L (21-32); CHLORIDE 106 MMOL/L (98-107); CREATININE SERUM 1.22 MG/DL (0.60-1.30); GFR ESTIMATED > 60; GLUCOSE 104 MG/DL (70-105); POTASSIUM 3.9 MMOL/L (3.6-5.0); SODIUM 140 MMOL/L (135-145)
[2020-03-04 09:05] LABS: HEMOGLOBIN 13.2 G/DL (13.3-17.7); WHITE BLOOD COUNT 8.3 10^3/uL (4.3-11.0)
[2020-03-04 09:06] LABS: MEAN PLATELET VOLUME 9.5 FL (7.4-10.4)
== END 2020-03-03 14:20 | disposition home or self-care (01) ==
LOC: EDUNIT# 14:57 → ER 14:59 → 4TH 16:35
PROVIDERS: ADMIT Family Medicine; ATTEND Family Medicine
DX: I16.1 Hypertensive emergency (principal); N17.9 Acute kidney failure, unspecified; Z79.899 Other long term (current) drug therapy
CPT/HCPCS: 36415; 76770; 80048; 80053; 80306; 81000; 83880; 84443; 85025; 85027; 93005; 93041; 93306; 93975; G0378

== ENCOUNTER → 2020-10-01 | Outpatient (CLI) | payer BC ==
[~2020-10-01] VITALS: Ht 187 cm; Wt 136.0 kg
[~2020-10-01] MED LIST: ACET-3075 PO; AMLO-250 PO; LISI10TA25 PO; LISI1TAB29 PO; MULT-1030 PO; REGADENOSON 0.4 MG/5 ML SYR (LEXISCAN) IV ONE
[2020-10-01] MEDS: CATHETER FLUSH 10 ML SYR IV PRN ×2 (08:07→09:34)
[2020-10-01 09:27] VITALS: BP 189/112
--- NOTE | 2020-10-03 17:43 | STRESS TEST ---
DATE OF SERVICE: 10/01/2020 RESTING AND POST REGADENOSON TECHNETIUM-99M TETROFOSMIN SPECT CT IMAGING ORDERING PHYSICIAN: Dr. Brice. PRIMARY PHYSICIAN: [facility]. CLINICAL DIAGNOSIS: Shortness of breath. Baseline images were carried out after injection of 10.21 mCi of technetium-99m Tetrofosmin. This was followed by 0.4 mg of Regadenoson and 30.4 mCi of technetium-99m Tetrofosmin for stress imaging. The electrocardiogram showed sinus rhythm at baseline. There appeared to be incomplete right bundle branch block. The electrocardiogram did not change significantly with the Regadenoson infusion. The patient tolerated the procedure well. Review of images at rest and following stress does not indicate any distinct perfusion defect consistent with significant myocardial ischemia or infarction. Left ventricular end diastolic volume is 165 mL. TID is absent (1.08). Left ventricular ejection fraction is calculated to be 50%. CONCLUSIONS: 1. Moderate cardiomegaly. 2. No evidence of significant myocardial ischemia or infarction on this study. 3. Well preserved global left ventricular systolic function without distinctive regional wall motion abnormality and with an ejection fraction of 50%. Job ID: [id number] DocumentID: [id number] Dictated Date: 10/03/2020 15:12:02 District Agent Date: 10/03/2020 17:43:12 Dictated By: TAMIKA BRICE MD, MA, FACP, FACC,
== END ==
LOC: CARD 07:56
PROVIDERS: ATTEND Internal Medicine Cardiovascular Disease
DX: I51.7 Cardiomegaly (principal)
CPT/HCPCS: 78452; 93017; A9502

== ENCOUNTER 2020-12-16 13:56 | Outpatient (CLI) | payer BC ==
[~2020-12-16 13:56] MED LIST changes: -REGADENOSON 0.4 MG/5 ML SYR (LEXISCAN) IV ONE
== END 2020-12-16 14:27 | disposition home or self-care (01) ==
LOC: SLEEP 13:56
PROVIDERS: ATTEND Nurse Practitioner Family
DX: G47.30 Sleep apnea, unspecified (principal); G47.50 Parasomnia, unspecified; G47.10 Hypersomnia, unspecified
CPT/HCPCS: G0399

== ENCOUNTER 2021-03-13 10:08 | Emergency (ER) | payer BC ==
[~2021-03-13] VITALS: Ht 187 cm; Wt 145.0 kg
[2021-03-13 10:25] VITALS: BP 101/63
--- NOTE | 2021-03-13 10:59 | ED Lower Extremity ---
General Chief Complaint: Lower Extremity Stated Complaint: BOTH KNEES PAIN/SWELLING Nursing Triage Note: TO FT WITH COMPLAINTS BILAT KNEE PAIN AND SWELLING. STATES HE WAS SEEN IN AUG FOR THE SAME THING. Source: patient, family Exam Limitations: no limitations History of Present Illness Date Seen by Provider: Mar 13, 2021 Time Seen by Provider: 10:42 Initial Comments Patient is a 40-year-old male who presents to the emergency department with a chief complaint of bilateral knee pain and swelling. Patient states he has had this off and on for months. Had an episode in August where he had x-rays done and was told he might have some "mild arthritis". Patient has recently been on a round of steroids, finished them last Sunday, states that it has not improved. Taking Tylenol arthritis at home for discomfort. Patient states that he has difficulty walking due to the pain. He was taken off NSAIDs secondary to some chronic kidney disease issues by his granulator. He denies any problems with urination specifically deep decreased output. No fevers, chills, cough or congestion. He is not Covid vaccinated. Denies rashes, abdominal pain, nausea, vomiting or diarrhea. No trauma is reported. Patient has a primary care nurse practitioner that he sees through [facility]. He has not had studies done for rheumatologic work-up. No family history of rheumatologic disease. Patient states he believes his symptoms have gotten worse since he was taken off meloxicam. Denies numbness tingling or weakness to his lower extremities, loss of sensation to his feet. All other review of systems reviewed and negative except as stated. Onset: last week Severity: severe Pain/Injury Location: bilateral knee Method of Injury: unknown Modifying Factors: Improves With Immobilization Allergies and Home Medications Allergies Coded Allergies: No Known Drug Allergies (Unverified , 03/01/20) Home Medications Acetaminophen/Diphenhydramine 1 Each Tablet, 1-2 EACH PO HS PRN for SLEEP, (Reported) Amlodipine Besylate 5 Mg Tablet, 5 MG PO DAILY, (Reported) Lisinopril/Hydrochlorothiazide 1 Each Tablet, 1 EACH PO DAILY, (Reported) Multivits,Ca,Min/Iron/FA/Lycop 1 Each Tablet, 1 EACH PO DAILY, (Reported) Patient Home Medication List Home Medication List Reviewed: Yes Review of Systems Constitutional: see HPI EENTM: no symptoms reported Respiratory: no symptoms reported Cardiovascular: no symptoms reported Gastrointestinal: no symptoms reported Genitourinary: no symptoms reported Musculoskeletal: joint pain (bilateral knees) All Other Systems Reviewed Negative Unless Noted: Yes Past Lgspfbn-Eevclf-Ukhvzd Hx Patient Social History Smoking Status: Never a Smoker Substance use?: No Alcohol Use?: No Past Medical History Surgeries: Yes (L ARM SURG) Respiratory: No Cardiac: Yes Hypertension Neurological: No Genitourinary: No Gastrointestinal: No Musculoskeletal: No Endocrine: No HEENT: No Cancer: No Psychosocial: No Family Medical History Hypertension Physical Exam Vital Signs Vital Signs - First Documented 03/13/21 10:25 Temp 35.7 Pulse 68 Resp 16 B/P (MAP) 101/63 (76) Pulse Ox 100 O2 Delivery Room Air Capillary Refill : Less Than 3 Seconds Height, Weight, BMI Height: '" Weight: lbs. oz. kg; 41.00 BMI Method: General Appearance: WD/WN, mild distress Neck: normal inspection Cardiovascular: regular rate, rhythm Respiratory: lungs clear, normal breath sounds, no respiratory distress, no accessory muscle use Gastrointestinal: non tender, soft Hips: bilateral hip non-tender, bilateral hip normal inspection, bilateral hip normal range of motion, bilateral hip no evidence of injury Legs: bilateral leg non-tender, bilateral leg normal inspection, bilateral leg normal range of motion, bilateral leg no evidence of injury Knees: bilateral knee bone tenderness (with ROM; no crepitance in the joint. no increaded warmth or redness. slightly more swollen right knee. no joint line tenderness. decreased ROM secondary to pain in the joints. no concern for septic joints); right knee joint effusion Ankles: bilateral ankle non-tender, bilateral ankle normal inspection, bi lateral ankle normal range of motion, bilateral ankle no evidence of injury Feet: bilateral foot non-tender, bilateral foot normal inspection, bilateral foot normal range of motion, bilateral foot no evidence of injury Neurologic/Tendon: normal sensation, normal motor functions Neurologic/Psychiatric: alert, normal mood/affect, oriented x 3 Skin: normal color, warm/dry Progress/Results/Core Measures Results/Orders My Orders Orders - OLIVA OVERTON MD Tramadol Tablet (Ultram Tablet) (03/13/21 11:00) Vital Signs/I&O 03/13/21 10:25 Temp 35.7 Pulse 68 Resp 16 B/P (MAP) 101/63 (76) Pulse Ox 100 O2 Delivery Room Air Blood Pressure Mean: 76 Departure Impression Primary Impression: Bilateral chronic knee pain Disposition: 01 HOME, SELF-CARE Condition: Stable Departure-Patient Inst. Decision time for Depature: 11:07 Referrals: [facility] (PCP/Family) Primary Care Physician Patient Instructions: Chronic Knee Pain (DC) Add. Discharge Instructions: Continue your Tylenol arthritis as needed for pain, take this every 4-6 hours. Close follow-up with your primary care physician. Consider asking her about a work-up for rheumatoid arthritis. You might also consider following up with orthopedics for further evaluation and investigation of your chronic knee pain. Return to the emergency room for any fevers, increased pain and swelling with redness or other emergent concerning symptoms. I have given you a prescription for some tramadol. Take this only as needed for severe pain there is a risk that this medication can be habit-forming. Scripts Tramadol HCl (Tramadol HCl) 50 Mg Tablet 50 MG PO Q6H PRN for PAIN, #15 TAB 0 Refills Prov: OLIVA OVERTON MD 03/13/21 OLIVA OVERTON MD Mar 13, 2021 10:59
[2021-03-13] MEDS ORDERED: TRM50T PO (11:09)
== END 2021-03-13 11:31 | disposition home or self-care (01) ==
LOC: EDUNIT# 10:08 → ER 10:11
DX: G89.29 Other chronic pain (principal); M25.562 Pain in left knee; M25.561 Pain in right knee; I10 Essential (primary) hypertension; Z79.899 Other long term (current) drug therapy

== ENCOUNTER → 2021-04-04 | Outpatient (CLI) | payer BC ==
[~2021-04-04] MED LIST changes: +TRM50T PO
[2021-04-04 17:23] LABS: ABSOLUTE RETIC # 46 10e9/uL (24-90); BASOPHILS % (AUTO) 0 % (0-10); EOSINOPHILS # (AUTO) 0.1 10^3/uL (0.0-0.3); EOSINOPHILS % (AUTO) 1 % (0-10); HEMATOCRIT 32 % (40-54); HEMOGLOBIN 10.4 g/dL (13.3-17.7); LYMPHOCYTES # (AUTO) 0.7 10^3/uL (1.0-4.0); LYMPHOCYTES % (AUTO) 8 % (12-44); MEAN CORPUSCULAR HEMOGLOBIN 26 pg (25-34); MEAN CORPUSCULAR HGB CONC 32 g/dL (32-36); MEAN CORPUSCULAR VOLUME 82 fL (80-99); MEAN PLATELET VOLUME 9.9 fL (9.0-12.2); MONOCYTES # (AUTO) 0.7 10^3/uL (0.0-1.0); MONOCYTES % (AUTO) 7 % (0-12); NEUTROPHILS # (AUTO) 7.6 10^3/uL (1.8-7.8); NEUTROPHILS % (AUTO) 84 % (42-75); PLATELET COUNT 163 10^3/uL (130-400); RETICULOCYTE % 1.16 % (0.50-2.40); WHITE BLOOD COUNT 9.1 10^3/uL (4.3-11.0)
[2021-04-04 18:14] LABS: LYMPHOCYTES % (MANUAL) 9 %; MONOCYTES % (MANUAL) 6 %; NEUTROPHILS % (MANUAL) 85 %; RBC MORPH NORMAL
== END ==
LOC: LAB 16:35
PROVIDERS: ATTEND Nurse Practitioner
DX: D64.9 Anemia, unspecified (principal)
CPT/HCPCS: 36415; 85007; 85027; 85045; 85055

== ENCOUNTER → 2021-04-08 | Outpatient (CLI) | payer BC ==
[~2021-04-08] MED LIST changes: +ALLO100T PO; +CARV6.252 PO; +DOXY50TA9 PO; +HYDR-3923 PO; +NIAC250T25 PO
== END ==
LOC: LABNPT 08:00
PROVIDERS: ATTEND Nurse Practitioner Family
DX: Z20.822 Contact with and (suspected) exposure to COVID-19 (principal)
CPT/HCPCS: 87635

== ENCOUNTER → 2021-04-08 | Outpatient (CLI) | payer BC ==
[~2021-04-08] MED LIST changes: +HOLD METFORMIN - RECEIVED CONTRAST 20 ML VIAL IV SCH; +IOHEXOL 350 MG/ML 100 ML (OMNIPAQUE 350) VIAL IV ONE; +NS 100 ML (IVPB) BAG IV ONE
--- NOTE | 2021-04-08 10:11 | Diagnostic Imaging Report ---
PROCEDURE: CT chest, abdomen, and pelvis with and without contrast. TECHNIQUE: Precontrast images were obtained of the chest, abdomen, and pelvis. Multiple contiguous axial images were obtained through the chest, abdomen, and pelvis after administration of intravenous contrast. Auto Exposure Controls were utilized during the CT exam to meet ALARA standards for radiation dose reduction. INDICATION: Weight loss. Anemia. Fatigue. Concern for malignancy. COMPARISON: None. CT chest: The heart size is within normal limits. No pericardial effusion is present. There is no mediastinal, hilar, or axillary lymphadenopathy. The lung windows demonstrate no pulmonary nodules or masses. There are no focal areas of consolidation. Dependent atelectasis is seen in the lung bases. No central endobronchial obstructing lesions are identified. Bilateral small pleural effusions are seen. No evidence of pneumothorax. No acute osseous abnormalities are seen in the chest. CT abdomen and pelvis: There is nonspecific hepatosplenomegaly. Subcentimeter cysts/hemangioma is seen in the right hepatic lobe. No suspicious hepatic lesions are identified. The portal vein is patent. The gallbladder is unremarkable. No intra or extra hepatic biliary dilation is seen. The pancreas, adrenal glands, and kidneys have a normal appearance. Mildly prominent lymph nodes are seen in the lower abdomen/pelvis along the left internal iliac lymph node chain. The largest measures 0.7 cm in short axis. The bowel loops are nondilated. The appendix is visualized in the right lower quadrant and has a normal appearance. Diverticuli are noted in the sigmoid colon. There is mild bowel wall thickening of the sigmoid colon. There is no free fluid or free air. No acute osseous abnormalities are seen in the abdomen and pelvis. There is exaggerated kyphosis of the thoracolumbar spine. Ureters and bladder are grossly normal. IMPRESSION: 1. Small bilateral pleural effusions. Associated dependent atelectasis is seen in the lung bases bilaterally. 2. Nonspecific hepatosplenomegaly. No suspicious hepatic or splenic lesions are identified. 3. Diverticulosis of the sigmoid colon without evidence of acute diverticulitis. There is mild bowel wall thickening of the sigmoid colon. Mild prominent left external iliac lymph nodes are present which may be reactive. However, underlying malignancy is not completely excluded and further evaluation with colonoscopy may be considered if the patient is considered high risk. Dictated by: Dictated on workstation # [id number]
== END ==
LOC: RAD 08:24
PROVIDERS: ATTEND Nurse Practitioner
DX: J90 Pleural effusion, not elsewhere classified (principal); J98.11 Atelectasis; K57.30 Diverticulosis of large intestine without perforation or abscess without bleeding; D64.9 Anemia, unspecified; R63.4 Abnormal weight loss
CPT/HCPCS: 71270; 74178

== ENCOUNTER 2021-04-12 20:28 | Outpatient (CLI) | payer BC ==
[~2021-04-12 20:28] MED LIST changes: -HOLD METFORMIN - RECEIVED CONTRAST 20 ML VIAL IV SCH; -IOHEXOL 350 MG/ML 100 ML (OMNIPAQUE 350) VIAL IV ONE; -NS 100 ML (IVPB) BAG IV ONE
== END 2021-04-13 06:25 | disposition home or self-care (01) ==
LOC: SLEEP 20:28
PROVIDERS: ATTEND Nurse Practitioner Family
DX: G47.33 Obstructive sleep apnea (adult) (pediatric) (principal); Z20.822 Contact with and (suspected) exposure to COVID-19
CPT/HCPCS: 87635; 95811

== ENCOUNTER 2021-04-14 05:31 | Outpatient (RCR) | payer BC ==
[~2021-04-14] VITALS: Ht 188 cm; Wt 122.1 kg
== END 2021-04-14 15:16 | disposition home or self-care (01) ==
LOC: PREOP 05:31
PROVIDERS: ATTEND Surgery
DX: Z01.812 Encounter for preprocedural laboratory examination (principal); D64.9 Anemia, unspecified; R63.4 Abnormal weight loss; Z20.822 Contact with and (suspected) exposure to COVID-19
CPT/HCPCS: 87635

== ENCOUNTER 2021-04-18 10:55 | Day surgery (SDC) | payer BC ==
[~2021-04-18] VITALS: Ht 188 cm; Wt 123.4 kg
[2021-04-18] MEDS ORDERED: LACTATED RINGERS 1,000 ML IV STA (10:56)
[2021-04-18] MEDS ORDERED: LACTATED RINGERS 1,000 ML IV ONE (10:58)
[2021-04-18] MEDS: HURRICAINE EXT TUBE (BENZOCAINE) XX PRN ×2 (11:07→12:30)
[2021-04-18 11:10] VITALS: BP 123/75
--- NOTE | 2021-04-18 11:59 | Progress Note-Pre Operative ---
Pre-Operative Progress Note H&P Reviewed The H&P was reviewed, patient examined and no changes noted. Time Seen by Provider: 11:57 Date H&P Reviewed: Apr 18, 2021 Time H&P Reviewed: 11:57 Pre-Operative Diagnosis: Iron deficiency anemia, Weight loss DARLENE AHN DO Apr 18, 2021 11:58
[2021-04-18] MEDS ORDERED: MIDAZOLAM 2 MG/2 ML (VERSED) VIAL ONE (12:26)
[2021-04-18] MEDS ORDERED: proPOfol 200 MG/20 ML (DIPRIVAN) VIAL IV ONE ×2 (12:27→12:54)
[2021-04-18 13:05] VITALS: BP 150/89
[2021-04-18 13:10] VITALS: BP_SYST 136; BP_SYST 166; BP_DIAS 80
--- NOTE | 2021-04-18 13:11 | Progress Note-Post Operative ---
Post-Operative Progess Note Surgeon (s)/Rotary Envelope Machine Operator (s) Surgeon DARLENE AHN DO Rotary Envelope Machine Operator: Beto Wagner, MSIII Pre-Operative Diagnosis Iron deficiency anemia, Weight loss Post-Operative Diagnosis Gastritis Hiatal henria Polyp diverticula hemorrhoids Procedure & Operative Findings Date of Procedure 04/18/21 Procedure Performed/Findings EGD with bx Colon with hot bx PROCEDURE NOTE: After informed consent was obtained, the patient was brought to the endoscopy suite, placed in bed in left lateral decubitus position. He was administered IV sedation by the JUNIOR MANUFACTURING ENGINEER who then monitored vitals the entire time, heart rate, blood pressure and pulse ox and the scope was inserted down the mouth through the esophagus into the stomach. On the way down, noted some mild esophagitis, took a picture, pushed into the stomach, pushed past the antrum into the duodenum. Duodenum looked good. Pulled back and did a biopsy of antrum, then retroflexed the scope, saw a small hiatal hernia, took a picture of this and then pulled the scope into the GE junction, took another picture of the hiatal hernia and then did a biopsy of the GE junction. Pushed the scope back into the stomach, suctioned all the air out of the stomach. At this point pulled the scope up the esophagus and out the mouth. Switched camera, switched gloves, went down below, started the colonoscopy. Pushed all the way into about 160 cm to get all the way to cecum. On the way in noted some diverticula and took a picture of them. In the cecum took a picture of the appendiceal orifice, noted the ileocecal valve and then slowly withdrew the scope, insufflating to look circumferentially at the cole starting in the cecum, up the ascending colon to the hepatic flexure, then down the transverse colon, splenic flexure, into the descending colon. In the descending colon saw a flat polyp and elected to do a hot biopsy of the polyp. Continued down into the sigmoid and finally into the rectum. Retroflexed in the rectal vault, saw some minimal internal hemorrhoids and took a picture of this. The patient tolerated the procedure and he recovered in the endoscopy suite. Anesthesia Type IV sedation by JUNIOR MANUFACTURING ENGINEER Estimated Blood Loss Estimated blood loss (mL): scant Specimens/Packing Specimens Removed antral bx body of stomach bx GE jxn bx desc colon polyp DARLENE AHN DO Apr 18, 2021 13:11
--- NOTE | 2021-04-18 13:13 | Endoscopy Discharge Instruct ---
Endo Procedure/Findings Findings 1.: Hiatal Hernia, Gastritis 2.: Polyp 3.: Diverticulosis 4.: Internal Hemorrhoids Discharge Instructions - Activity: You might feel a little sleepy until tomorrow. This is due to the medicine you received to relax you. Until tomorrow, you should: NOT drive a car, operate machinery or power tools. NOT drink any alcoholic beverages. NOT make any important decisions or sign importortant papers. Do not return to work until tomorrow, unless otherwise instructed. Resume previous activities tomorrow. Diet: Start by taking liquids. If you tolerate liquids, advance to solid food. 1.: EGD in 3 years 2.: Colonscopy in 5 years Notify Physician - If you experience excessive bleeding, unusual abdominal pain, fever, or chest pain, contact your doctor immediately. DARLENE AHN DO Apr 18, 2021 13:13
--- NOTE | 2021-04-18 13:13 | Anesthesia-General Post-Op ---
MAC Patient Condition Mental Status/LOC: Same as Preop Cardiovascular: Satisfactory Nausea/Vomiting: Absent Respiratory: Satisfactory Pain: Controlled Complications: Absent Post Op Complications Complications None Follow Up Care/Instructions Patient Instructions None needed. Anesthesiology Discharge Order Discharge Order Patient is doing well, no complaints, stable vital signs, no apparent adverse anesthesia problems. No complications reported per nursing. SURENDRA TAYLOR CRNA Apr 18, 2021 13:13
[2021-04-18 13:35] VITALS: BP 154/88
[2021-04-18 13:36] VITALS: BP 154/88
== END 2021-04-18 13:46 | disposition home or self-care (01) ==
LOC: ENDO 10:55
PROVIDERS: ATTEND Surgery
DX: D12.4 Benign neoplasm of descending colon (principal); K29.50 Unspecified chronic gastritis without bleeding; K31.A0 Gastric intestinal metaplasia, unspecified; K20.90 Esophagitis, unspecified without bleeding; K57.30 Diverticulosis of large intestine without perforation or abscess without bleeding; D50.0 Iron deficiency anemia secondary to blood loss (chronic); K44.9 Diaphragmatic hernia without obstruction or gangrene; K64.9 Unspecified hemorrhoids; E66.9 Obesity, unspecified; R63.4 Abnormal weight loss; G47.33 Obstructive sleep apnea (adult) (pediatric); I10 Essential (primary) hypertension; M1A.0610 Idiopathic chronic gout, right knee, without tophus (tophi); Z79.899 Other long term (current) drug therapy; Z79.2 Long term (current) use of antibiotics; Z68.35 Body mass index [BMI] 35.0-35.9, adult; Z79.82 Long term (current) use of aspirin

== ENCOUNTER 2021-06-20 12:22 | Outpatient (RCR) | payer BC ==
[~2021-06-20 12:22] MED LIST changes: -LISI1TAB29 PO; +LISI1TAB44 PO
[2021-06-20 14:13] LABS: ABSOLUTE RETIC # 112 10e9/uL (24-90); BASOPHILS % (AUTO) 1 % (0-10); EOSINOPHILS # (AUTO) 0.1 10^3/uL (0.0-0.3); EOSINOPHILS % (AUTO) 2 % (0-10); HEMATOCRIT 39 % (40-54); HEMOGLOBIN 12.5 g/dL (13.3-17.7); LYMPHOCYTES % (AUTO) 14 % (12-44); MEAN CORPUSCULAR HEMOGLOBIN 26 pg (25-34); MEAN CORPUSCULAR HGB CONC 32 g/dL (32-36); MEAN CORPUSCULAR VOLUME 82 fL (80-99); MEAN PLATELET VOLUME 9.5 fL (9.0-12.2); MONOCYTES # (AUTO) 0.5 10^3/uL (0.0-1.0); MONOCYTES % (AUTO) 8 % (0-12); NEUTROPHILS # (AUTO) 5.3 10^3/uL (1.8-7.8); NEUTROPHILS % (AUTO) 75 % (42-75); PLATELET COUNT 161 10^3/uL (130-400); RETICULOCYTE % 2.34 % (0.50-2.40); WHITE BLOOD COUNT 7.1 10^3/uL (4.3-11.0)
== END 2021-07-15 | disposition home or self-care (01) ==
LOC: ONC 12:22
PROVIDERS: ATTEND Internal Medicine Hematology & Oncology
DX: N18.30 Chronic kidney disease, stage 3 unspecified (principal); D63.1 Anemia in chronic kidney disease; M10.9 Gout, unspecified
CPT/HCPCS: 85025; 85045; G0463; 99213

== ENCOUNTER → 2021-07-25 | Outpatient (CLI) | payer BC ==
--- NOTE | 2021-07-25 15:37 | Diagnostic Imaging Report ---
PROCEDURE: US Renal Bilateral. TECHNIQUE: Multiple real-time grayscale images were obtained over the kidneys in various projections bilaterally. INDICATION: Chronic kidney disease with hypertension and hyperuricemia. FINDINGS: Right kidney measures 12.1 x 5.3 x 5.8 cm, and left kidney measures 11.2 x 5.6 x 5.7 cm. Cortical thickness and echogenicity are normal. Right kidney does contain two cysts. Largest is approximately 17 mm x 15 mm. The smaller cyst measures 12 mm x 12 mm. There is slight prominence of the renal pelvis, but no calculi are seen. Left kidney is unremarkable. Bilateral ureteral jets were visualized. IMPRESSION: Right renal cysts. No other significant abnormality is detected. Dictated by: Dictated on workstation # [id number]
== END ==
LOC: RAD 15:00
PROVIDERS: ATTEND Internal Medicine Nephrology
DX: N28.1 Cyst of kidney, acquired (principal); I12.9 Hypertensive chronic kidney disease with stage 1 through stage 4 chronic kidney disease, or unspecified chronic kidney disease; N18.31 Chronic kidney disease, stage 3a; E79.0 Hyperuricemia without signs of inflammatory arthritis and tophaceous disease
CPT/HCPCS: 76770

== ENCOUNTER 2023-04-16 04:34 | Emergency (ER) | payer SELFPAY ==
[~2023-04-16] VITALS: Ht 182 cm; Wt 119.7 kg
[~2023-04-16 04:34] MED LIST changes: +DOXY50TA16 PO; -DOXY50TA9 PO
[2023-04-16] MEDS ORDERED: proPOfol INJECTION 200 MG/20 ML VIAL IV ONE (04:37)
[2023-04-16] MEDS ORDERED: NS 1000 ML IV BAG IV ONE (04:37)
[2023-04-16] MEDS ORDERED: SUCCINYLCHOLINE INJ 20 MG/1 ML 10 ML VIAL INJ ONE (04:37)
[2023-04-16] MEDS ORDERED: AMIODARONE INJ 150 MG/3 ML VIAL IV ONE (04:37)
[2023-04-16] MEDS ORDERED: EPINEPHrine 0.1 MG/ML 10 ML EMERGENCY SYR IJ ONE (04:37)
[2023-04-16] MEDS ORDERED: AMIODARONE IV ONE (04:37)
[2023-04-16] MEDS ORDERED: NS IV ONE (04:37)
[2023-04-16] MEDS ORDERED: MIDAZOLAM INJ 5 MG/5 ML VIAL IJ ONE (04:37)
[2023-04-16] MEDS ORDERED: LIDOCAINE UROJET 2% GEL 10 ML PKG TOP ONE (05:00)
[2023-04-16] MEDS ORDERED: LACTATED RINGERS 1,000 ML 1,000 ML IV ONE ×2 (05:00→06:30)
[2023-04-16] MEDS ORDERED: NS IV 1000 ML 1,000 ML IV SCH (05:00)
[2023-04-16 05:06] LABS: BASOPHILS # (AUTO) 0.2 10^3/uL (0.0-0.1); BASOPHILS % (AUTO) 1 % (0-10); EOSINOPHILS % (AUTO) 0 % (0-10); HEMATOCRIT 51 % (40-54); HEMOGLOBIN 16.1 g/dL (13.3-17.7); LYMPHOCYTES # (AUTO) 1.1 10^3/uL (1.0-4.0); LYMPHOCYTES % (AUTO) 3 % (12-44); MEAN CORPUSCULAR HEMOGLOBIN 25 pg (25-34); MEAN CORPUSCULAR HGB CONC 32 g/dL (32-36); MEAN CORPUSCULAR VOLUME 77 fL (80-99); MEAN PLATELET VOLUME 9.7 fL (9.0-12.2); MONOCYTES # (AUTO) 1.7 10^3/uL (0.0-1.0); MONOCYTES % (AUTO) 5 % (0-12); NEUTROPHILS # (AUTO) 29.8 10^3/uL (1.8-7.8); NEUTROPHILS % (AUTO) 90 % (42-75); PLATELET COUNT 450 10^3/uL (130-400)
[2023-04-16 05:14] LABS: WHITE BLOOD COUNT 33.1 10^3/uL (4.3-11.0)
[2023-04-16] MEDS ORDERED: CEFEPIME INJECTION 1,000 MG in NS (IVPB) 50 ML 50 ML IV ONE ×2 (05:15→05:30)
[2023-04-16 05:18] LABS: ABG BASE EXCESS -6.3 MMOL/L (-2.5-2.5); ABG OXYGEN SATURATION 72 % (94-100); ABG PCO2 52 MMHG (35-45); ABG PO2 62 MMHG (79-93); ABG TCO2 21.3 MMOL/L (21.0-31.0)
[2023-04-16 05:22] LABS: CHLORIDE 102 MMOL/L (98-107); SODIUM 140 MMOL/L (135-145)
[2023-04-16 05:23] LABS: ALBUMIN 2.9 GM/DL (3.2-4.5)
[2023-04-16 05:24] LABS: AMYLASE 65 U/L (25-125); CALCIUM 8.7 MG/DL (8.5-10.1)
[2023-04-16 05:25] LABS: GLUCOSE 109 MG/DL (70-105); TOTAL PROTEIN 6.6 GM/DL (6.4-8.2)
[2023-04-16 05:26] LABS: CARBON DIOXIDE 17 MMOL/L (21-32)
[2023-04-16 05:27] LABS: ALLENS TEST YES-POS; INSPIRED O2 15L; VENTILATOR NO
[2023-04-16 05:27] LABS: BILIRUBIN,TOTAL 1.6 MG/DL (0.1-1.0)
[2023-04-16 05:28] LABS: INR 1.5 (0.8-1.4); PROTHROMBIN TIME PATIENT 18.2 SEC (12.2-14.7)
[2023-04-16 05:29] LABS: ALKALINE PHOSPHATASE 133 U/L (40-136); CREATININE SERUM 1.55 MG/DL (0.60-1.30); GFR ESTIMATED 57
[2023-04-16 05:30] LABS: PATIENT TEMP 38.8
[2023-04-16 05:30] LABS: BUN/CREATININE RATIO 23
[2023-04-16] MEDS ORDERED: ACETAMINOPHEN 650 MG SUPPOSITORY PR ONE (05:30)
[2023-04-16] MEDS ORDERED: NS (IVPB) 50 ML 50 ML ONE (05:31)
[2023-04-16] MEDS ORDERED: CEFEPIME 2 GM VIAL ONE (05:31)
[2023-04-16 05:32] LABS: ALANINE AMINOTRANSFERASE 46 U/L (0-55)
[2023-04-16 05:33] LABS: CREATINE KINASE 46 U/L (30-200); ERYTHROCYTE SEDIMENTATION RATE 1 MM/HR (0-15); LIPASE 80 U/L (8-78)
[2023-04-16 05:33] LABS: ABG PH 7.21 (7.37-7.43)
[2023-04-16 05:40] LABS: CREATINE KINASE MB 1.5 NG/ML (<6.6)
[2023-04-16 05:41] LABS: FIBRIN DEGRADATION PRODUCTS 5.77 UG/ML (0.00-0.49)
[2023-04-16] MEDS ORDERED: ASPIRIN 81 MG CHEWABLE TABLET NG ONE (05:45)
[2023-04-16] MEDS ORDERED: CLOPIDOGREL 75 MG TABLET NG ONE (05:45)
[2023-04-16] MEDS ORDERED: CEFEPIME INJECTION 2,000 MG in NS (IVPB) 50 ML 50 ML IV ONE (05:45)
[2023-04-16 05:49] LABS: BAND NEUTROPHILS 6 %; LYMPHOCYTES % (MANUAL) 5 %; MONOCYTES % (MANUAL) 2 %; NEUTROPHILS % (MANUAL) 87 %
[2023-04-16 05:50] LABS: BURR CELLS SLIGHT; ELLIPT/OVALOCYTES SLIGHT; MICROCYTOSIS SLIGHT
[2023-04-16 05:53] LABS: ACETAMINOPHEN < 10 UG/ML (10-30); TSH (THYROID ANALYZER) 4.12 UIU/ML (0.35-4.94)
[2023-04-16] MEDS ORDERED: NOREPINEPHRINE 8 MG/250 ML 250 ML IV ONE (05:56)
[2023-04-16] MEDS ORDERED: SODIUM BICARB 8.4% 50 MEQ/50 ML (ABBOTT) SYR IV ONE (06:00)
--- NOTE | 2023-04-16 06:44 | ED Cardiac General ---
History of Present Illness General Chief Complaint: Chest Pain Stated Complaint: CP,SOB Source: patient, EMS, old records (FREDERIC GUERIN ) History of Present Illness Date Seen by Provider: Apr 16, 2023 Time Seen by Provider: 04:37 Initial Comments PT ARRIVES VIA EMS FROM HOME PT LIVES ALONE PT STATES HE GOT UP TO GO TO THE BATHROOM AND SUDDENLY BEGAN HAVING CHEST PAIN AND SHORTNESS OF BREATH AND RAPID HEART BEAT EMS REPORT THAT PT WITH HEART RATE OF 258, INITIAL BP FOR EMS 201/124 EMS GAVE ADENOSINE 6 MG, THEN 12 MG X 2 DOSES, WELL CARDIZEM 5 MG --NO CHANGE PT IS IN SEVERE DISTRESS ON ARRIVAL, WITH CYANOSIS AND MOTTLING, IS PROFUSELY DIAPHORETIC, VERY DYSPNEIC PT IS ABLE TO TALK IN 1-2 WORD PHRASES ON ARRIVAL AND IS ALERT AND ORIENTED X 4 ON ARRIVAL. PT STATES HIS ONLY MEDICAL PROBLEM IS HTN, AND TAKES LASIX AND CARDIZEM, AND HAS NOT SEEN A CORRECTION OFFICER REFORMATORY HE DENIES SMOKING, ALCOHOL OR DRUG USE PCP: [facility] (TRUONGFREDERIC Izquierdo ) Allergies and Home Medications Allergies Coded Allergies: No Known Drug Allergies (Unverified , 03/01/20) Patient Home Medication List Home Medication List Reviewed: Yes (FREDERIC GUERIN ) Allopurinol (Allopurinol) 100 Mg Tablet, 100 MG PO DAILY, (Reported) Entered as Reported by: AURELIANO RAYO on 04/12/211625 Amlodipine Besylate (Amlodipine Besylate) 5 Mg Tablet, 5 MG PO DAILY, (Reported) Entered as Reported by: STEPHANE RAMIREZ on 03/02/20 1030 Carvedilol (Carvedilol) 6.25 Mg Tablet, 6.25 MG PO BID, (Reported) Entered as Reported by: AURELIANO RAYO on 04/12/21 162 Doxycycline Hyclate (Doxycycline Hyclate) 50 Mg Tablet.dr, 50 MG PO DAILY, (Reported) Entered as Reported by: AURELIANO RAYO on 04/12/21 162 Hydralazine HCl (Hydralazine HCl) 25 Mg Tablet, 25 MG PO DAILY, (Reported) Entered as Reported by: AURELIANO RAYO on 04/12/21 162 Lisinopril/Hydrochlorothiazide (Lisinopril-Hctz 10-12.5 mg Tab) 1 Each Tablet, 1 EACH PO DAILY, (Reported) Entered as Reported by: STEPHANE RAMIREZ on 03/02/20 1030 Niacin (Endur-Acin) 250 Mg Tablet.er, 250 MG PO DAILY, (Reported) Entered as Reported by: AURELIANO SHAH on 04/12/21 1626 Review of Systems Review of Systems Constitutional: see HPI Respiratory: See HPI Cardiovascular: See HPI (FREDERIC GUERIN DO) Past Coviojl-Sdlxiy-Xqyhdu Hx Patient Social History Tobacco Use?: No Substance use?: No Alcohol Use?: No (FREDERIC GUERIN DO) Seasonal Allergies Seasonal Allergies: No (FREDERIC GUERIN DO) Past Medical History Surgeries: Yes (L ARM SURG) Orthopedic Respiratory: No Cardiac: Yes Chronic Edema/Swelling, Hypertension Neurological: No Genitourinary: No Gastrointestinal: No Musculoskeletal: No Endocrine: Yes (OBESITY) HEENT: No Cancer: No Psychosocial: No Integumentary: No (FREDERIC GUERIN DO) Family Medical History Hypertension (FREDERIC GUERIN DO) Physical Exam Vital Signs Vital Signs - First Documented 04/16/23 04/16/23 04:35 05:19 Temp 38.8 Pulse 264 Resp 28 B/P (MAP) 99/ Pulse Ox 95 O2 Delivery OxyMask O2 Flow Rate 10.00 FiO2 100 (JUAN ALBERTO LEON MD) Vital Signs Capillary Refill : (FREDERIC GUERIN DO) Height, Weight, BMI Height: '" Weight: lbs. oz. kg; 34.91 BMI Method: General Appearance: Anxious, Obese, Severe Distress Neck: JVD Respiratory: Accessory Muscle Use, Respiratory Distress Cardiovascular: JVD, Tachycardia Gastrointestinal: Non Tender, Other (OBESE) Extremity: Pedal Edema (1-2+ PEDAL EDEMA, BUT HAS SIGNIFICANT PITTING EDEMA TO THIGHS/HIPS/BUTTOCKS) Neurologic/Psychiatric: Alert, Oriented x3, No Motor/Sensory Deficits Skin: Cool, Cyanosis, Diaphoresis (PROFUSELY), Mottled, Pallor (FREDERIC GUERIN DO) Focused Exam Sepsis Stage: Septic Shock Possible Source: Unknown (FREDERIC GUERIN DO) Lactate Level 04/16/23 05:13: Lactic Acid Level 5.42*H (JUAN ALBERTO LEON MD) Time of Focused Exam: 06:00 Respiratory: Other (ON VENTILATOR) Cardiovascular: Regular Rate, Rhythm Capillary Refill: Greater Than 3 Seconds Skin: mottled, pallor (FREDERIC GUERIN DO) Lactic Acid Level Laboratory Tests Test 04/16/23 05:13 Lactic Acid Level 5.42 MMOL/L (0.50-2.00) *H (JUAN ALBERTO LEON MD) Within 3hrs of presentation: Admin fluids, Admin ABX, Blood cultures prior to ABX's, Focus exam, Lactate level, Vasopressin therapy (FREDERIC GUERIN DO) Procedures/Interventions Lumen: triple Central Line Procedure: betadine prep, sterile drapes applied, sterile dressing applied Position: internal jugular (R) Anesthesia: Patient on IV sedation Volume Anesthetic (ccs): 0 Complications: none Post Position: sutured, good blood return, position confirmed w/ CXR 20 cm 7 Yi triple-lumen central line placed via ultrasound guidance to the right IJ Seldinger technique. Good flash, and flush. Secured with suture and covered with sterile dressing. Tolerated procedure well with no complications. X1 stick. Verified with chest x-ray which shows central line in good position without pneumothorax. (JUAN ALBERTO LEON MD) Reason for Intubation: POST CODE, RESPIRATORY DISTRESS, V-TACH, POST CPR Date of ETT Placement: Apr 16, 2023 Intubation Method: orotracheal Tube Size: 7.50 Medications: Propofol, Succinylcholine, Versed Positive End Tide CO2: Yes Breath Sounds after Intubation: bilateral-equal Intubation Complications: no complications Post Intubation Xray: Yes ADEQUATE POSITION OF ET TUBE AND NG TUBE (FREDERIC GUERIN DO) Progress/Results/Core Measures Results/Orders Lab Results Laboratory Tests Test 04/16/23 04:43 04/16/23 05:00 04/16/23 05:08 04/16/23 05:13 Range/Units White Blood Count 33.1 *H 4.3-11.0 10^3/uL Red Blood Count 6.58 H 4.30-5.52 10^6/uL Hemoglobin 16.1 13.3-17.7 g/dL Hematocrit 51 40-54 % Mean Corpuscular Volume 77 L 80-99 fL Mean Corpuscular Hemoglobin 25 25-34 pg Mean Corpuscular Hemoglobin Concent 32 32-36 g/dL Red Cell Distribution Width 18.0 H 10.0-14.5 % Platelet Count 450 H 130-400 10^3/uL Mean Platelet Volume 9.7 9.0-12.2 fL Immature Granulocyte % (Auto) 1 % Neutrophils (%) (Auto) 90 H 42-75 % Lymphocytes (%) (Auto) 3 L 12-44 % Monocytes (%) (Auto) 5 0-12 % Eosinophils (%) (Auto) 0 0-10 % Basophils (%) (Auto) 1 0-10 % Neutrophils # (Auto) 29.8 H 1.8-7.8 10^3/uL Lymphocytes # (Auto) 1.1 1.0-4.0 10^3/uL Monocytes # (Auto) 1.7 H 0.0-1.0 10^3/uL Eosinophils # (Auto) 0.0 0.0-0.3 10^3/uL Basophils # (Auto) 0.2 H 0.0-0.1 10^3/uL Immature Granulocyte # (Auto) 0.4 H 0.0-0.1 10^3/uL Neutrophils % (Manual) 87 % Lymphocytes % (Manual) 5 % Monocytes % (Manual) 2 % Band Neutrophils 6 % Microcytosis SLIGHT Nuvia Cells SLIGHT Elliptocytes SLIGHT Erythrocyte Sedimentation Rate 1 0-15 MM/HR Prothrombin Time 18.2 H 12.2-14.7 SEC INR Comment 1.5 H 0.8-1.4 Activated Partial Thromboplast Time 37 H 24-35 SEC D-Dimer 5.77 H 0.00-0.49 UG/ML Sodium Level 140 135-145 MMOL/L Potassium Level 3.0 L 3.6-5.0 MMOL/L Chloride Level 102 98-107 MMOL/L Carbon Dioxide Level 17 L 21-32 MMOL/L Anion Gap 21 H 5-14 MMOL/L Blood Urea Nitrogen 35 H 7-18 MG/DL Creatinine 1.55 H 0.60-1.30 MG/DL Estimat Glomerular Filtration Rate 57 BUN/Creatinine Ratio 23 Glucose Level 109 H 70-105 MG/DL Calcium Level 8.7 8.5-10.1 MG/DL Corrected Calcium 9.6 8.5-10.1 MG/DL Magnesium Level 2.0 1.6-2.4 MG/DL Total Bilirubin 1.6 H 0.1-1.0 MG/DL Aspartate Amino Transf (AST/SGOT) 82 H 5-34 U/L Alanine Aminotransferase (ALT/SGPT) 46 0-55 U/L Alkaline Phosphatase 133 40-136 U/L Total Creatine Kinase 46 30-200 U/L Creatine Kinase MB 1.5 <6.6 NG/ML Myoglobin 315.9 H 10.0-92.0 NG/ML Troponin I 0.198 H <0.028 NG/ML C-Reactive Protein High Sensitivity 27.46 H 0.00-0.50 MG/DL B-Type Natriuretic Peptide 427.4 H <100.0 PG/ML Total Protein 6.6 6.4-8.2 GM/DL Albumin 2.9 L 3.2-4.5 GM/DL Amylase Level 65 25-125 U/L Lipase 80 H 8-78 U/L TSH [place] Testing 4.12 0.35-4.94 UIU/ML Acetaminophen Level < 10 L 10-30 UG/ML Serum Alcohol < 10 <10 MG/DL Glucometer 77 70-110 MG/DL Blood Gas Puncture Site LRAD Blood Gas Patient Temperature 38.8 Arterial Blood pH 7.21 *L 7.37-7.43 Arterial Blood Partial Pressure CO2 52 H 35-45 MMHG Arterial Blood Partial Pressure O2 62 L 79-93 MMHG Arterial Blood HCO3 20 L 23-27 MMOL/L Arterial Blood Total CO2 21.3 21.0-31.0 MMOL/L Arterial Blood Oxygen Saturation 72 L 94-100 % Arterial Blood Base Excess -6.3 L -2.5-2.5 MMOL/L Jasmeet Test YES-POS Blood Gas Ventilator Setting NO Blood Gas Inspired Oxygen 15L Lactic Acid Level 5.42 *H 0.50-2.00 MMOL/L Test 04/16/23 05:20 04/16/23 06:31 Range/Units Influenza Type A (RT-PCR) Not Detected Not Detecte Influenza Type B (RT-PCR) Not Detected Not Detecte SARS-CoV-2 RNA (RT-PCR) Detected H Not Detecte Bedside Blood Gas pH (LAB) 7.400 7.310-7.410 Bedside Blood Gas pCO2 (LAB) 34.5 L 41.0-51.0 mmHg Bedside Blood Gas pO2 (LAB) 212 H 80-105 mmHg Bedside Blood Gas HCO3 (LAB) 21.4 L 23.0-28.0 mmol/L POC Blood Gas Total CO2 Calc 22 L 24-29 mmol/L Bedside Bl Gas O2 Saturation (Calc) 100 H 95-98 % Bedside Arterial Blood Base Excess -3 L -2-3 mmol/L (JUAN ALBERTO LEON MD) My Orders Orders - JUAN ALBERTO LEON MD Chest 1 View, Ap/Pa Only (04/16/23 06:50) Propofol Drip (Icu) (Propofol Drip (Icu) (04/16/23 07:20) (JUAN ALBERTO LEON MD) Medications Given in ED Current Medications Medications Dose Ordered Sig/Gia Route Start Time Stop Time Status Last Admin Dose Admin Acetaminophen 1,300 mg ONCE ONCE AK 04/16/23 05:30 04/16/23 05:31 DC 04/16/23 06:00 1,300 MG Aspirin 324 mg ONCE ONCE NG 04/16/23 05:45 04/16/23 05:46 DC 04/16/23 06:12 324 MG Cefepime HCl 2000 mg/Sodium Chloride 50 ml @ 100 mls/hr ONCE ONCE IV 04/16/23 05:45 04/16/23 06:14 DC 04/16/23 05:37 100 MLS/HR Clopidogrel Bisulfate 75 mg ONCE ONCE NG 04/16/23 05:45 04/16/23 05:46 DC 04/16/23 06:12 75 MG Lidocaine HCl 10 ml ONCE ONCE TOP 04/16/23 05:00 04/16/23 05:01 DC 04/16/23 06:02 10 ML Norepinephrine Bitartrate 250 ml @ ud STK-MED ONCE IV 04/16/23 05:56 04/16/23 05:58 DC 04/16/23 06:09 28.1 MLS/HR Propofol 100 ml @ ud STK-MED ONCE IV 04/16/23 05:12 04/16/23 05:16 DC 04/16/23 05:15 27 MLS/HR Sodium Bicarbonate 50 meq ONCE ONCE IV 04/16/23 06:00 04/16/23 06:01 DC 04/16/23 06:11 50 MEQ (JUAN ALBERTO LEON MD) Vital Signs/I&O 04/16/23 04/16/23 04/16/23 04/16/23 04:35 04:35 05:15 05:19 Temp 38.8 Pulse 264 72 120 Resp 28 B/P (MAP) 99/ 152/98 Pulse Ox 95 95 95 O2 Delivery OxyMask OxyMask O2 Flow Rate 10.00 FiO2 100 04/16/23 04/16/23 04/16/23 06:00 06:01 06:09 Temp 38.8 Pulse 90 B/P (MAP) 90/51 Pulse Ox 100 FiO2 100 (JUAN ALBERTO LEON MD) Blood Pressure Mean: 64 FSBG Bedside Testing Finger Stick Blood Glucose: 77 Blood Glucose Action Taken: DR. GUERIN AT BEDSIDE, NOTIFIED (FREDERIC GUERIN DO) Progress Progress Note : Progress Note PPE WORN AT ALL TIMES PT IS IN SEVERE DISTRESS ON ARRIVAL, PROFUSELY DIAPHORETIC, PALE/CYANOTIC AND MOTTLED, VERY DYSPNEIC HR IN 260'S SHOWING WIDE COMPLEX TACHYCARDIA AFTER EXPLAINING NEED FOR CARDIOVERSION TO PT, VERBAL CONSENT WAS OBTAINED FROM PT, DUE TO EMERGENT NATURE OF PT'S CONDITION PT WAS GIVEN PROPOFOL FOR SEDATION, AND CARDIOVERSION ATTEMPTED AT 50 J WITHOUT CONVERSION PT SECOND CARDIOVERSION DONE AT 100 J--PT BEGAN TO GO INTO V-FIB AND BECAME UNRESPONSIVE, PULSELESS AND APENIC THE SECOND SHOCK WAS BEING DELIVERED PT GIVEN AMIODARONE BOLUS AND DRIP ORDERED PT THEN WENT INTO ASYSTOLE AND CPR WAS INITIATED WITH COMPRESSIONS AND PT WAS BEING BAGGED BY RT STAFF PT WAS GIVEN EPINEPHRINE WITH RETURN OF PULSE, INTO SINUS RHYTHM WITH RBBB, AND PT BEGAN TO WAKE AND HAVE SPONTANEOUS RESPIRATIONS, AND WAS AWAKE AND ABLE TO TALK. EXPLAINED TO PT HIS CONDITION AND EXPLAINED NEED FOR INTUBATION AND VENTILATOR DUE TO HIS CRITICAL ILLNESS, IN ADDITION TO RECEIVING CPR WITH PROBABLE BROKEN RIBS FROM COMPRESSIONS, AND HE IS AGREEABLE TO THIS, VERBAL CONSENT WAS AGAIN OBTAINED FROM THE PT, DUE TO EMERGENT NATURE OF PT'S CONDITION. PT WAS GIVEN SUCCINYLCHOLINE AND PROPOFOL FOR RSI AND PT SUCCESSFULLY INTUBATED WITH 7.5 ET TUBE. PT THEN PLACED ON PROPOFOL DRIP. HE WAS GIVEN VERSED FOR ADDITIONAL SEDATION PT REMAINS IN NORMAL SINUS RHYTHM, WITH COMPLEXES CONTINUING TO BECOME NARROW AND HAVE A NORMAL APPEARANCE, , AND HEART RATE DOWN TO 90'S. PT'S BLOOD PRESSURE TRENDED DOWNWARD, DESPITE FLUID BOLUS OF 3 LITERS, LEVOPHED DRIP WAS STARTED. PT'S TEMP WAS NOTED TO BE 102, AND WAS GIVEN TYLENOL SUPPOSITORY CBC RESULTED WITH WBC 33.1, AND ADDITIONAL SEPSIS PROTOCOLS INITIATED WELL HE WAS GIVEN CEFEPIME 2 GM IV COVID TEST IS POSITIVE. PT WITH ELEVATED D-DIMER, ELEVATED TROPONIN, ELEVATED BNP. BUN 35, CR 1.55 INITIAL ABG'S WITH ACIDOSIS, HYPOXIA, HYPERCARBIA AND LOW BICARB BICARB IV ORDERED VENT SETTINGS ADJUSTED REPEAT ABG'S MUCH IMPROVED. PH 7.40, PCO2 34, PO2 221, HCOC 21.4, O2 SAT 100% ON VENTILATOR FERNANDEZ CATHETER PLACED--NO RETURN OF URINE. CORRECT PLACEMENT OF CATHETER VERIFIED BY ULTRASOUND. NO URINE OUTPUT DURING ER STAY CENTRAL LINE TO RIGHT I.J. PLACED BY DR. LEON. PT'S PARENTS ARRIVE, AND DISCUSSED PT'S CONDITION, AND THEY ARE AGREEABLE TO PLAN OF CARE. VITALS STABLE AT TIME OF TRANSFER CARE TURNED OVER TO DR. LEON AT SHIFT CHANGE. TRANSFER IS PENDING, [facility] IS EN ROUTE. DR. DIAZ HAS TALKED WITH PT'S PARENTS, AND THEY NOW REPORT THAT PT HAS HAD ATRIAL FIBRILLATION AND BEEN ON A BLOOD THINNER IN THE PAST, AND HAS SEEN A CORRECTION OFFICER REFORMATORY IN [place] IN THE PAST, BUT IS NOT ON BLOOD THINNERS OR ANTI- ARRHYTHMICS NOW. VERY COMPLEX PATIENT, WITH BOTH SEPTIC AND CARDIOGENIC SHOCK, WITH RESPIRATORY FAILURE, CHF, COVID, POST CARDIOPULMONARY ARREST AND CPR. (FREDERIC GUERIN DO) Initial ECG Impression Date: Apr 16, 2023 Initial ECG Impression Time: 04:42 Initial ECG Rate: 263 Initial ECG Rhythm: V.Tach (WIDE COMPLEX TACHYCARDIA) Initial ECG Intervals AK--NA QRS 230 QT/QTC 222/332 Initial ECG Comparisson: No Previous ECG Available Comment INTERPRETED BY ME EKG : EKG Time: 04:49 Rate: 96 Intervals SINUS RHYTHM, WIDE COMPLEXES, FREQUENT PVC'S, R BBB CHANGED FROM FIRST EKG, POST RESUSCITATION Comment EKG # 3 AT 0457--RATE 127, SINUS TACH, RBBB AK 184, QRS 133, QT QTC 391/466 IMPROVED FROM PREVIOUS ELKG #4 AT 0608, RATE 91, NSR, MILD IVCD AK 180 QRS 146, QT/QTC 440/489 IMPROVED FROM PREVIOUS, COMPLEXES NARROWER AND VERY REGULAR NO ST ELEVATION OR ISCHEMIC CHANGES ON EKG (FREDERIC GUERIN DO) Diagnostic Imaging Comments CXR--PER RADIOLOGIST REPORT AT 0645 FINDINGS: The endotracheal tube is approximately 6 cm above the maurice. Lung volumes are low. The nasogastric tube side port is in the stomach. There are technical limitations of the exam relating to patient body habitus and difficulties with exposure. The heart is prominent in size. There is no obvious pneumothorax. There is multifocal bilateral lung consolidation. IMPRESSION: . 1. Very low lung volumes with multifocal nonspecific bilateral lung consolidation. This could reflect edema, multifocal pneumonia, or other alveolar consolidative process. 3. Support lines and tubes as above. Reviewed: Reviewed by Me (FREDERIC GUERIN DO) Critical Care Note Critical Care Start Time: 04:37 Stop Time: 07:30 Total Time (minutes) 180 + MINUTES (FREDERIC GUERIN DO) Departure Communication (Admissions) 0517--ATTEMPTED TO CONTACT FAMILY. NO ANSWER 0523--ATTEMPTING TO CONTACT FAMILY. NO ANSWER 0536--CALLED DR. YOU, MESSAGE ON CELL. 0538--SPOKE WITH DR. DIAZ, RECOMMENDATIONS NOTED FOR ASPIRIN AND PLAVIX VIA NG TUBE. HE WILL BE IN TO SEE PT 0545--SPOKE WITH DR. YOU, SHE ADVISES TRANSFER TO HIGHER LEVEL OF CARE, DUE TO COMPLEXITY OF PT'S CONDITION. 0547--CALLED [facility]. THEY WILL CALL BACK 0600--CALLED DR. DIAZ AND UPDATED HIM ON PLAN TO TRANSFER TO , AND HE IS AGREEABLE TO THIS 0633--CALLED [facility]. THEY WILL CALL BACK. 0635--DR. DIAZ HERE TO SEE PT, AND TO TALK WITH FAMILY. 0639--[facility] CALLED BACK. PT HAS BEEN ACCEPTED BY [facility]. 0650--[facility] WILL BE TRANSPORTING PT, ETA APPROXIMATELY 1 HOUR. (FREDERIC GUERIN DO) Impression Primary Impression: Cardiopulmonary arrest with successful resuscitation Additional Impressions: Ventricular tachyarrhythmia Cardiogenic shock Septic shock COVID-19 virus infection Obesity HX OF HTN NSTEMI (non-ST elevated myocardial infarction) CHF (congestive heart failure) Pneumonia Respiratory failure Disposition: XFER SHT-TRM HOSP Condition: Critical Transfer Transfer Reason: Exceeds level of care (NEED FOR MULTISPECIALTY CARE UNAVAILABE AT THIS FACILITY) Transfer Facility: [facility] Method of Transfer: Air ([facility]) (FREDERIC GUERIN DO) Departure-Patient Inst. Referrals: JOSE DAVID CHRISTIE APRN (PCP) Primary Care Physician [facility] (Family) Primary Care Physician FREDERIC GUERIN DO Apr 16, 2023 06:44 JUAN ALBERTO LEON MD Apr 16, 2023 07:34
--- NOTE | 2023-04-16 07:11 | Consultation-Cardiology ---
HPI-Cardiology Cardiology Consultation: Date of Consultation 04/16/23 Time Seen by a Provider: 06:30 Date of Admission Attending Physician [facility] Admitting Physician Admitting Physician: Attending Physician: Consulting Physician TAMIKA DIAZ MD, MA, FACP, FACC, [facility] [place], [facility] Physician requesting consult: Dr Saxena HPI: Chief Complaint: Reason for Card consult: Tachycardia NOTE: At the time of my exam, the patient is inubated and sedated and does not respond to questions. I obtained history from his ER physician Dr Saxena and I also spoke with his parents. This is a 42 yo man who apparently awoke with a feeling of distress: palpitations, shortness of breath, generalized chest discomfort. During transport and upon arrival to the ER was found to be in wide-complex tachycardia for which he received shocks and the rhythm remained unstable for a considerable length of time, necessitating continuing CPR (including chest compressions) per the report of the ER physician who also suspects that CPR may have led to rib fractures and pulmonary contusions. Sinus rhythm was restored and no ST elevation was seen. Pt had to be intubated and put on mechanical ventilation due to deteriorating respiratory status. White count was noted to be markedly elevated. High fever was noted (38.8 deg C; approx 102 deg F). BP was relatively low that has required pressor support. Was tested for Covid 19 and found positive. His parents state that he has been increasing short of breath for many weeks. Activity level has been low. Has had bilat leg swelling and also increasing abd swelling. He has recently been diagnosed with PAF by his pcp in and has been awaiting an apptt with a aircraft refueler in that was due to be this week. He has been on blood thinners at home, his parents report, but they are unable to provide us any details. Review of Systems-Cardiology Review of Systems Constitutional: other (A review of systems cannot be obtained from the patient due to reasons noted above. To the extent it could be gotten from other sources is described under HPI) XLN-[id number]-Fflclh Hx Patient Social History Smoking Status: Never a Smoker 2nd Hand Smoke Exposure: No Alcohol Use?: No Past Medical History PMH As described under Assessment. Family Medical History Family Medical History: Father had ME at age 69 His parents report that the patient does not smoke, do drugs, or drink alcohol Allergies and Home Medications Allergies Coded Allergies: No Known Drug Allergies (Unverified , 03/01/20) Patient Home Medication List Home Medication List Reviewed: Yes Allopurinol (Allopurinol) 100 Mg Tablet, 100 MG PO DAILY, (Reported) Entered as Reported by: AURELIANO RAYO on 04/12/21 162 Amlodipine Besylate (Amlodipine Besylate) 5 Mg Tablet, 5 MG PO DAILY, (Reported) Entered as Reported by: STEPHANE RAMIREZ on 03/02/20 1030 Carvedilol (Carvedilol) 6.25 Mg Tablet, 6.25 MG PO BID, (Reported) Entered as Reported by: AURELIANO RAYO on 04/12/21 1626 Doxycycline Hyclate (Doxycycline Hyclate) 50 Mg Tablet.dr, 50 MG PO DAILY, (Reported) Entered as Reported by: AURELIANO RAYO on 04/12/21 162 Hydralazine HCl (Hydralazine HCl) 25 Mg Tablet, 25 MG PO DAILY, (Reported) Entered as Reported by: AURELIANO RAYO on 04/12/21 162 Lisinopril/Hydrochlorothiazide (Lisinopril-Hctz 10-12.5 mg Tab) 1 Each Tablet, 1 EACH PO DAILY, (Reported) Entered as Reported by: STEPHANE RAMIREZ on 03/02/20 1030 Niacin (Endur-Acin) 250 Mg Tablet.er, 250 MG PO DAILY, (Reported) Entered as Reported by: AURELIANO RAYO on 04/12/21 1626 Physical Exam-Cardiology Physical Exam Vital Signs/I&O 04/16/23 04/16/23 04/16/23 04/16/23 04:35 05:15 05:19 06:00 Temp 38.8 38.8 Pulse 264 72 120 Resp 28 B/P (MAP) 99/ 152/98 Pulse Ox 95 95 O2 Delivery OxyMask FiO2 100 04/16/23 04/16/23 06:01 06:09 Pulse 90 B/P (MAP) 90/51 Pulse Ox 100 FiO2 100 Capillary Refill : Less Than 3 Seconds Constitutional: No AAO x 3 (on mech vent and sedated); well-developed, well-nourished, other (obese) HEENT: PERRL; No xanthelasmas are seen Neck: carotid pulses are 2 + bilaterally Respiratory: No accessory muscle use; chest expansion is symmetric, chest is bilaterally symmetric, other (diminished air entry at the bases) Cardiovascular: regular rate-rhythm, S1 and S2, systolic murmur (soft SENG at card basee) Gastrointestinal: No tender; distended; No guarding, No rebound; audible bowel sounds Extremities: No clubbing, No cyanosis; significant edema (moderate, bilateral leg edema (pitting)) Neurologic/Psychiatric: other (on mech vent, unable to cooperate with any neuro exam) Skin: No rash on exposed areas, No ulcerations on exposed areas Data Review Labs Laboratory Tests 04/16/23 04:43: White Blood Count 33.1*H, Red Blood Count 6.58H, Hemoglobin 16.1, Hematocrit 51, Mean Corpuscular Volume 77L, Mean Corpuscular Hemoglobin 25, Mean Corpuscular Hemoglobin Concent 32, Red Cell Distribution Width 18.0H, Platelet Count 450H, Mean Platelet Volume 9.7, Immature Granulocyte % (Auto) 1, Neutrophils (%) (Auto) 90H, Lymphocytes (%) (Auto) 3L, Monocytes (%) (Auto) 5, Eosinophils (%) (Auto) 0, Basophils (%) (Auto) 1, Neutrophils # (Auto) 29.8H, Lymphocytes # (Auto) 1.1, Monocytes # (Auto) 1.7H, Eosinophils # (Auto) 0.0, Basophils # (Auto) 0.2H, Immature Granulocyte # (Auto) 0.4H, Neutrophils % (Manual) 87, Lymphocytes % (Manual) 5, Monocytes % (Manual) 2, Band Neutrophils 6, Microcytosis SLIGHT, Nuvia Cells SLIGHT, Elliptocytes SLIGHT, Erythrocyte Sedimentation Rate 1, Prothrombin Time 18.2H, INR Comment 1.5H, Activated Partial Thromboplast Time 37H, D-Dimer 5.77H, Sodium Level 140, Potassium Level 3.0L, Chloride Level 102, Carbon Dioxide Level 17L, Anion Gap 21H, Blood Urea Ni trogen 35H, Creatinine 1.55H, Estimat Glomerular Filtration Rate 57, BUN/Creatinine Ratio 23, Glucose Level 109H, Calcium Level 8.7, Corrected Calci um 9.6, Magnesium Level 2.0, Total Bilirubin 1.6H, Aspartate Amino Transf (AST/SGOT) 82H, Alanine Aminotransferase (ALT/SGPT) 46, Alkaline Phosphatase 133, Total Creatine Kinase 46, Creatine Kinase MB 1.5, Myoglobin 315.9H, Tr oponin I 0.198H, C-Reactive Protein High Sensitivity 27.46H, B-Type Natriuretic Peptide 427.4H, Total Protein 6.6, Albumin 2.9L, Amylase Level 65, Lipase 80H, TSH [place] Testing 4.12, Acetaminophen Level < 10L, Serum Alcohol < 10 04/16/23 05:00: Glucometer 77 04/16/23 05:08: Blood Gas Puncture Site LRAD, Blood Gas Patient Temperature 38.8, Arterial Blood pH 7.21*L, Arterial Blood Partial Pressure CO2 52H, Arterial Blood Partial Pressure O2 62L, Arterial Blood HCO3 20L, Arterial Blood Total CO2 21.3, Arterial Blood Oxygen Saturation 72L, Arterial Blood Base Excess -6.3L, Jasmeet Test YES-POS, Blood Gas Ventilator Setting NO, Blood Gas Inspired Oxygen 15L 04/16/23 05:13: Lactic Acid Level 5.42*H 04/16/23 05:20: Influenza Type A (RT-PCR) Not Detected, Influenza Type B (RT-PCR) Not Detected, SARS-CoV-2 RNA (RT-PCR) DetectedH 04/16/23 06:31: Bedside Blood Gas pH (LAB) 7.400, Bedside Blood Gas pCO2 (LAB) 34.5L, Bedside Blood Gas pO2 (LAB) 212H, Bedside Blood Gas HCO3 (LAB) 21.4L, POC Blood Gas T otal CO2 Calc 22L, Bedside Bl Gas O2 Saturation (Calc) 100H, Bedside Arterial Blood Base Excess -3L Laboratory Tests 04/16/23 04:43 A/P-Cardiology Assessment/Admission Diagnosis Wide-complex tachycardia at approx 270 bpm: VT vs A Flutter with 1:1 conduction and aberrancy Ac resp failure Elevated troponin: Type 1 NSTEMI vs Type 2 NSTEMI (due to extreme tachycardia and also due to transient hypoxia) PAF - family report it was recently diagnosed by his pcp in and pt had been on anticoag and 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 Therefore, the need for cath is not immediate * We recommend echo * We recommend replenishment of electrolytes * Continue amiodarone for maintaining NSR * I discussed his case in detail with Dr Saxena and with the patient's family. Family would like transfer to tertiary care facility. This seems very reasonable because our hospital lacks all the specialities that are needed to take care of this patient with multisystem involvement TAMIKA DIAZ MD FACP FAC [facility] Apr 16, 2023 07:11
[2023-04-16] MEDS ORDERED: AMIODARONE FOR DRIP 450 MG in NORMAL SALINE (EXCEL) 250 ML 250 ML IV SCH (07:15)
--- NOTE | 2023-04-16 07:23 | Diagnostic Imaging Report ---
EXAMINATION: Chest radiograph, portable AP view. DATE: 04/16/2023 7:11 AM INDICATION: 42-year-old male, central line placement. COMPARISON: April 16, 2023 at 0538 hours. FINDINGS: The endotracheal tube is approximately 6.5 cm above the maurice. The nasogastric tube is in the stomach. There is a newly placed right internal jugular central venous line with tip near the level of the cavoatrial junction. There is redemonstrated multifocal bilateral lung consolidation and very low lung volumes. IMPRESSION: 1. Newly placed right internal jugular central venous line overlies the cavoatrial junction. 2. Redemonstrated multifocal bilateral lung consolidation and very low lung volumes. Dictated by: Dictated on workstation # [id number]
--- NOTE | 2023-04-16 08:02 | Diagnostic Imaging Report ---
EXAMINATION: Chest radiograph, portable AP view. DATE: 04/16/2023 5:37 AM INDICATION: 42-year-old male, status post code. Shortness of breath. COMPARISON: CT chest abdomen pelvis April 08, 2021. FINDINGS: The endotracheal tube is approximately 6 cm above the maurice. Lung volumes are low. The nasogastric tube side port is in the stomach. There are technical limitations of the exam relating to patient body habitus and difficulties with exposure. The heart is prominent in size. There is no obvious pneumothorax. There is multifocal bilateral lung consolidation. IMPRESSION: . 1. Very low lung volumes with multifocal nonspecific bilateral lung consolidation. This could reflect edema, multifocal pneumonia, or other alveolar consolidative process. 3. Support lines and tubes as above. Dictated by: Dictated on workstation # [id number]
[2023-04-16 08:16] VITALS: BP 112/80
== END 2023-04-16 08:22 | disposition short-term general hospital (02) ==
LOC: EDUNIT# 04:34 → ER 04:36
DX: U07.1 COVID-19 (principal); J12.82 Pneumonia due to coronavirus disease 2019; I46.9 Cardiac arrest, cause unspecified; I47.29 Other ventricular tachycardia; R57.0 Cardiogenic shock; R65.21 Severe sepsis with septic shock; J96.90 Respiratory failure, unspecified, unspecified whether with hypoxia or hypercapnia; I21.4 Non-ST elevation (NSTEMI) myocardial infarction; I11.0 Hypertensive heart disease with heart failure; I50.9 Heart failure, unspecified
CPT/HCPCS: 31500; 36556; 36600; 51702; 71045; 80053; 82150; 82550; 82553; 82805; 82947; 83605; 83690; 83735; 83874; 83880; 84443; 84484; 85007; 85027; 85379; 85610; 85652; 85730; 86141; 87040; 87636; 93005; 93041; 94002; 94799; 99291; G0480 ×2; 36415; 80320; 80329